=== PATIENT | male | born 1940 | race Caucasian/White ===

== ENCOUNTER → 2017-11-30 | Day surgery (SDC) | payer OTHER ==
[~2017-11-30] MED LIST: ALTACE; ASPIRIN; BACTRIM DS TAB1 EACH PO; BENADRYL25 MG PO; CEFUROXIME250 MG PO; CIPRO500 MG PO; COLACE100 MG PO; COMBIVENT IN; CONSTULOSE10 GM/152 PO; CYMBALTA; DEPAKOTE 250MG250 M1 PO; DICLOFENAC; DICLOFENAC SOD50 M1 PO; DICLOFENAC SODI75 MG PO; DIGOXIN; FINASTERIDE1 MG PO; FLAGYL500 MG PO; FLOMAX0.4 MG PO; GLUCOPHAGE; IBUPROFEN 400400 M2 PO; KEFLEX500 MG PO; LACTULOSE20 GM/30 M PO; LIPITOR10 MG PO; LOVASTATIN 20 M20 MG PO; MACROBID 100 M100 M1 PO; MAGOX 400400 MG PO; METFORMIN HCL500 MG PO; MIRALAX17 GM PO; NITROFURANTOIN100 MG PO; NYSTATIN 1100000 U/M TOP; NYSTATIN CREAM TOP; ONDANSETRON HCL4 M2 PO; PEPCID20 MG PO; PLAVIX 75 MG TA75 M1 PO; PRAVACHOL; PROSCAR 5MG TABL5 MG PO; PROTONIX40 M1 PO; PROTONIX40 M4 PO; PROVENTIL IH; PROZAC; PROZAC10 MG PO; RISPERDAL0.25 MG PO; SYNTHROID50 MCG PO; TRAZODONE HCL100 MG PO; TYLENOL325 MG PO; ZOLOFT50 MG PO
[2017-11-30 10:04] LABS: HEMATOCRIT 40.6 % (42.0-52.0); HEMOGLOBIN 13.2 gm/dL (14.0-18.0); MCHC 32.5 g/dL (28.0-37.0); MCV 95.5 fL (80.0-100.0); MPV 8.6 fl. (7.2-11.1); RBC 4.25 mil/uL (4.50-6.00); RDW-CV 13.5 % (10.5-14.5); WBC 5.1 thou/uL (4.0-11.0)
[2017-11-30 10:10] LABS: CALCIUM 9.2 mg/dL (8.5-10.1); CREATININE 0.9 mg/dL (0.6-1.3); POTASSIUM 4.4 mmol/L (3.5-5.1)
--- NOTE | 2017-11-30 12:55 | EKG ---
[place] [address] ELECTROCARDIOGRAM REPORT Name: IVAN CHACON Room: [facility]#: [id number] Admission: 11/30/17 Attend Phys: Angela Fischer MD Discharge: Date of : 36 Report #: [id number] THIS REPORT FOR: //name// [facility] Test Date: 2017-11-30 Test Time: 09:55:31 Pat Name: IVAN CHACON Department: Room: Gender: M Getterer: : 1940 Requested By: Angela Fischer Order Number: [id number] Reading MD: Joe Leroy Measurements Intervals [place] Rate: 48 P: 36 MO: 202 QRS: -53 QRSD: 168 T: 25 QT: 473 QTc: 423 Interpretive Statements Bradycardia with sinus arrhythmia RBBB and LAFB Compared to ECG 02/03/2017 08:22:31 no change Electronically Signed On 11-30-2017 12:55:45 MUSIC PROMOTER by Joe Leroy [email or web address] <ELECTRONICALLY SIGNED> By: Joe Leroy MD, [facility] 11/30/17 1255 D: 01954 4 Joe Leroy MD, FACC /EPI
--- NOTE | 2017-11-30 16:50 | EKG ---
[place] [address] ELECTROCARDIOGRAM REPORT Name: IVAN CHACON Room: [facility]#: [id number] Admission: 11/30/17 Attend Phys: Angela Fischer MD Discharge: Date of : 38 Report #: [id number] THIS REPORT FOR: //name// [facility] Test Date: 2017-11-30 Test Time: 13:01:40 Pat Name: IVAN CHACON Department: Room: Gender: M Bobbin Presser: : 1940 Requested By: Butch Mcintyre Order Number: [id number] Reading MD: Joe Leroy Measurements Intervals [place] Rate: 44 P: 74 DE: 183 QRS: -48 QRSD: 175 T: 33 QT: 477 QTc: 408 Interpretive Statements Sinus bradycardia Supraventricular bigeminy RBBB and LAFB Compared to ECG 11/30/2017 09:55:31 no change Electronically Signed On 11-30-2017 16:50:11 PAINT FACTORY WORKER by Joe Leroy [email or web address] <ELECTRONICALLY SIGNED> By: Joe Leroy MD, [facility] 11/30/17 1650 1301 1301 Joe Leroy MD, FACC /EPI
--- NOTE | 2017-12-05 16:35 | CON ---
[address] [address] CONSULTATION Name: IVAN CHACON SR Room: [facility]#: [id number] Admission: 11/30/17 Attend Phys: Angela Fischer MD Discharge: Date of : 38 Report #: [id number] THIS REPORT FOR: //name// CC: Angela Bowling MD [facility] Patient's Chart DATE OF SERVICE: 11/30/2017 HISTORY OF PRESENT ILLNESS: The patient is a 77-year-old single white male who I was asked to see in the recovery room today after he was noted to be bradycardic. The patient has no history of heart disease. He was noted in the past to have an abnormal ECG and actually saw my partner, Dr. Nadir Mcclendon in the cardiology clinic in June 2017. The patient had an echocardiogram performed that showed normal left ventricular function, aortic sclerosis. He actually underwent a nuclear stress test that showed a fixed inferior defect, but no reversible ischemia. No further cardiac evaluation was recommended. The patient is not very active because of a previous stroke and arthritis. He has had problems swallowing. He was brought to the outpatient department here at [facility] today and underwent EGD and esophageal dilatation. In recovery room, he was noted to have a slow heart rate. I was asked to see him for further evaluation and treatment. The patient denies any recent lightheadedness, shortness of breath, syncope. He does note some fatigue. He denies history of myocardial infarction or chest pain. PAST MEDICAL HISTORY: Otherwise significant for cholecystectomy. He has a history of hyperlipidemia, sleep apnea. MEDICATIONS: Consist of Plavix, Pepcid, Diane, Proscar, lovastatin, Naprosyn, Risperdal, Flomax, Desyrel. ALLERGIES: He has previous intolerance to ASPIRIN AND RAMIPRIL. FAMILY HISTORY: Negative for heart disease. SOCIAL HISTORY: He is , lives with a son in [place]. No smoking. Has history of alcohol abuse and went to , no longer abuses alcohol. REVIEW OF SYSTEMS: He apparently had a previous stroke in 2011 affecting his left side. He is now on Plavix. He has no history of asthma. He does have sleep apnea and uses CPAP. He has had no history of liver disease, kidney disease, psychiatric illness, chronic skin condition. PHYSICAL EXAMINATION: GENERAL: Revealed a large, elderly male lying on a stretcher, [place] [address] CONSULTATION Name: IVAN CHACON SR Room: [facility]#: [id number] Admission: 11/30/17 Attend Phys: Angela Fischer MD Discharge: Date of : 38 Report #: [id number] distress. VITAL SIGNS: He had a blood pressure 140/70, pulse is 50. HEENT: He was anicteric. Conjunctivae pink. Mucous membranes moist. NECK: Veins were not distended. No carotid bruits. CHEST: Clear to auscultation. CARDIOVASCULAR: Regular bradycardia, no significant murmur. Occasional prematurity. ABDOMEN: Obese, soft, nontender. EXTREMITIES: Had no edema. Dorsalis pedis pulse 1+ bilaterally. SKIN: Cool and dry. NEUROLOGIC: Nonfocal. LABORATORY DATA: His ECG on admission this morning showed sinus bradycardia, first degree AV block, occasional PAC, left anterior fascicular block and a right bundle branch block. In recovery room, he had a similar ECG and on the rhythm strip was noted to have sinus bradycardia with occasional PACs. IMPRESSION AND RECOMMENDATIONS: 1. Sinus bradycardia. If symptomatic, I would recommend a pacemaker. This certainly would avoid beta blockers. The patient is not symptomatic because he is very inactive because of his previous stroke and arthritis. 2. Premature atrial contractions. Asymptomatic No evidence of structural heart disease. 3. Previous stroke. The patient is on Plavix. 4. Recent esophageal dilatation. 5. Hyperlipidemia. The patient is on a statin drug. 6. Degenerative joint disease. 7. Sleep apnea. The patient uses CPAP. The patient is scheduled to return to see my partner, Dr. Mcclendon in the cardiology clinic next month. <ELECTRONICALLY SIGNED> By: Joe Leroy MD, FACC 12/05/17 1635 1456 1846Joe Leroy MD, FACC /nt
== END | disposition home or self-care (01) ==
LOC: M.SUR 09:23
PROVIDERS: Internal Medicine Gastroenterology
DX: K44.9 Diaphragmatic hernia without obstruction or gangrene (principal); Z88.6 Allergy status to analgesic agent; Z88.2 Allergy status to sulfonamides; Z91.041 Radiographic dye allergy status; Z79.899 Other long term (current) drug therapy

== ENCOUNTER 2017-12-21 22:02 | Inpatient (IN) | payer OTHER ==
[~2017-12-21] VITALS: Ht 185.4 cm; Wt 125.3 kg
[~2017-12-21 22:02] MED LIST changes: -DICLOFENAC SOD50 M1 PO; -NITROFURANTOIN100 MG PO; -PROTONIX40 M1 PO
[2017-12-21 22:05] VITALS: BP 104/54
[2017-12-21 22:40] LABS: ABSOLUTE EOSINOPHILS 0.4 thou/uL (0.0-0.7); ABSOLUTE LYMPHOCYTES 0.8 thou/uL (0.8-5.3); ABSOLUTE MONOCYTES 0.6 thou/uL (0.0-1.2); ABSOLUTE NEUTROPHILS 3.9 thou/uL (1.6-8.1); BASOPHILS 0.3 %; EOSINOPHILS 6.3 %; HEMATOCRIT 44.5 % (42.0-52.0); HEMOGLOBIN 14.7 gm/dL (14.0-18.0); LYMPHOCYTES 13.4 %; MCH 31.2 pg (26.0-34.0); MCV 94.5 fL (80.0-100.0); MONOCYTES 11.1 %; MPV 8.5 fl. (7.2-11.1); NUCLEATED RBCS 0 /100WBC; PLATELET COUNT* 201 thou/uL (150-400); POLYS 68.9 %; RBC 4.71 mil/uL (4.50-6.00); RDW-CV 13.7 % (10.5-14.5); WBC 5.6 thou/uL (4.0-11.0)
[2017-12-21 22:45] LABS: ANION GAP 11 mmol/L (7-16); BUN 57 mg/dL (7-18); CALCIUM 8.2 mg/dL (8.5-10.1); CHLORIDE 106 mmol/L (98-107); CO2 24 mmol/L (21-32); CREATININE 1.2 mg/dL (0.6-1.3); GLUCOSE 154 mg/dL (70-99); POTASSIUM 3.8 mmol/L (3.5-5.1); SODIUM 141 mmol/L (136-145)
[2017-12-21 22:53] LABS: ALKALINE PHOSPHATASE 116 U/L (46-116); LIPASE 285 U/L (73-393); SGOT 23 U/L (15-37); SGPT 26 U/L (30-65); TOTAL BILIRUBIN 0.4 mg/dL (<0.1-1.0); TOTAL PROTEIN 6.3 g/dL (6.4-8.2); TROPONIN-I LEVEL <0.06 ng/mL (<0.06)
[2017-12-22 00:24] VITALS: BP 107/60
[2017-12-22 00:25] VITALS: BP 131/75
[2017-12-22 03:57] VITALS: BP 105/74
[2017-12-22] MEDS ORDERED: PROTONIX40 M1 PO (05:42)
[2017-12-22 08:00] VITALS: BP 110/67
--- NOTE | 2017-12-22 12:12 | EKG ---
[place] [address] ELECTROCARDIOGRAM REPORT Name: IVAN CHACON SR Room: [address] ADM IN M.R.#: [id number] Admission: 12/21/17 Attend Phys: Yosvany Card Discharge: Date of : 38 Report #: [id number] THIS REPORT FOR: //name// [facility] ED Test Date: 2017-12-21 Test Time: 22:21:23 Pat Name: IVAN CHACON Department: Room: [facility] Gender: M School Janitor: REYES Dasilva : 1940 Requested By: Juan Delvalle Order Number: [id number] MD: Nadir Mcclendon Measurements Intervals [place] Rate: 88 P: 46 NV: 180 QRS: -85 QRSD: 159 T: 59 QT: 398 QTc: 482 Interpretive Statements Sinus rhythm Atrial premature complexes in couplets RBBB and LAFB Compared to ECG 11/30/2017 13:01:40 Sinus bradycardia no longer present Electronically Signed On 12-22-2017 12:12:42 TOY ASSEMBLER by Nadir Mcclendon [email or web address] <ELECTRONICALLY SIGNED> By: Nadir Mcclendon MD, FAC 12/22/17 1212 20 20 Nadir Mcclendon MD, [facility] /EPI
[2017-12-22 16:00] VITALS: BP 124/68
[2017-12-22 17:18] LABS: URINE BILIRUBIN NEGATIVE (Negative); URINE BLOOD TRACE (Negative); URINE CLARITY HAZY; URINE COLOR YELLOW; URINE GLUCOSE-RANDOM NEGATIVE (Negative); URINE KETONES TRACE (Negative); URINE LEUKOCYTES-REFLEX 1+ (Negative); URINE NITRITE-REFLEX POSITIVE (Negative); URINE PROTEIN NEGATIVE (Negative); URINE SPECIFIC GRAVITY 1.025 (1.005-1.030); URINE UROBILINOGEN 0.2 E.U./dl (0.2-1.0)
[2017-12-22 17:23] LABS: BACTERIA-REFLEX >30 Many /HPF (None Seen); CASTS None Seen /LPF (None Seen); SQUAMOUS >10 Many /LPF (0-3); URINE RBC None Seen /HPF (0-2); URINE WBC-REFLEX >25 Many /HPF (0-5)
[2017-12-22 17:24] LABS: CRYSTALS None Seen /LPF (None Seen)
[2017-12-22 20:10] VITALS: BP 144/66
[2017-12-23 00:30] VITALS: BP 111/49
[2017-12-23 04:04] VITALS: BP 102/55
[2017-12-23 05:12] LABS: MCH 31.4 pg (26.0-34.0)
[2017-12-23 05:18] LABS: HEMATOCRIT 35.6 % (42.0-52.0); MCV 92.6 fL (80.0-100.0); NUCLEATED RBCS 0 /100WBC; PLATELET COUNT* 157 thou/uL (150-400); RBC 3.85 mil/uL (4.50-6.00); WBC 5.1 thou/uL (4.0-11.0)
[2017-12-23 06:00] LABS: HEMOGLOBIN 12.1 gm/dL (14.0-18.0)
[2017-12-23 06:03] LABS: CALCIUM 7.9 mg/dL (8.5-10.1); POTASSIUM 3.7 mmol/L (3.5-5.1)
[2017-12-23 06:49] LABS: ABSOLUTE BASOPHILS 0.1 thou/uL (0.0-0.2); ABSOLUTE EOSINOPHILS 0.4 thou/uL (0.0-0.7); ABSOLUTE LYMPHOCYTES 0.9 thou/uL (0.8-5.3); ABSOLUTE MONOCYTES 0.4 thou/uL (0.0-1.2); ABSOLUTE NEUTROPHILS 3.4 thou/uL (1.6-8.1)
[2017-12-23 06:50] LABS: PLATELET ESTIMATE ADEQUATE
[2017-12-23 08:00] VITALS: BP 126/62
[2017-12-23 11:07] LABS: APTT 29.4 Seconds (25.0-31.3); INR 1.1; PROTIME 10.8 Seconds (9.20-11.50)
[2017-12-23 12:17] VITALS: BP 114/48
[2017-12-23 15:53] VITALS: BP 124/55
[2017-12-23 17:06] LABS: eGFR IF AFRICAN AMERICAN 96 (>59)
[2017-12-23 20:45] VITALS: BP 119/61
[2017-12-23 21:06] LABS: PARATHYROID HORMONE 50 pg/mL (15-65)
[2017-12-24 03:39] VITALS: BP 103/52
[2017-12-24 05:47] LABS: HEMATOCRIT 32.4 % (42.0-52.0); HEMOGLOBIN 11.1 gm/dL (14.0-18.0); MCH 31.6 pg (26.0-34.0); MCHC 34.2 g/dL (28.0-37.0); MCV 92.6 fL (80.0-100.0); MPV 9.1 fl. (7.2-11.1); RBC 3.5 mil/uL (4.50-6.00); RDW-CV 13.4 % (10.5-14.5); WBC 5.7 thou/uL (4.0-11.0)
[2017-12-24 06:01] LABS: CALCIUM 7.9 mg/dL (8.5-10.1); CREATININE 0.8 mg/dL (0.6-1.3); POTASSIUM 3.4 mmol/L (3.5-5.1)
[2017-12-24 08:00] VITALS: BP 125/50; BP 171/63
[2017-12-24 12:00] VITALS: BP 146/56
[2017-12-24 16:00] VITALS: BP 115/52
[2017-12-24 16:15] LABS: ABSOLUTE EOSINOPHILS 0.6 thou/uL (0.0-0.7); ABSOLUTE MONOCYTES 0.5 thou/uL (0.0-1.2); ABSOLUTE NEUTROPHILS 4.8 thou/uL (1.6-8.1); BASOPHILS 0.2 %; EOSINOPHILS 8.7 %; HEMATOCRIT 34.6 % (42.0-52.0); HEMOGLOBIN 11.6 gm/dL (14.0-18.0); LYMPHOCYTES 14.1 %; MCH 31.7 pg (26.0-34.0); MCHC 33.6 g/dL (28.0-37.0); MCV 94.2 fL (80.0-100.0); MONOCYTES 7.1 %; MPV 8.8 fl. (7.2-11.1); NUCLEATED RBCS 0 /100WBC; PLATELET COUNT* 148 thou/uL (150-400); POLYS 69.9 %; RBC 3.68 mil/uL (4.50-6.00); WBC 6.9 thou/uL (4.0-11.0)
[2017-12-24 16:45] LABS: ALBUMIN 2.4 g/dL (3.4-5.0); CALCIUM 7.9 mg/dL (8.5-10.1); CREATININE 0.9 mg/dL (0.6-1.3); POTASSIUM 3.7 mmol/L (3.5-5.1); TOTAL BILIRUBIN 0.1 mg/dL (<0.1-1.0); TOTAL PROTEIN 5.1 g/dL (6.4-8.2)
[2017-12-24 19:45] VITALS: BP 126/55
[2017-12-25] VITALS: BP 112/54
[2017-12-25 04:00] VITALS: BP 115/67
[2017-12-25 09:15] VITALS: BP 118/49
[2017-12-25 15:21] VITALS: BP 106/45
[2017-12-26] VITALS: BP 117/55
[2017-12-26 04:00] VITALS: BP 110/26
[2017-12-26 05:07] LABS: HEMATOCRIT 32.6 % (42.0-52.0); HEMOGLOBIN 11.4 gm/dL (14.0-18.0); MCH 32.6 pg (26.0-34.0); MCV 93.1 fL (80.0-100.0); MPV 9.1 fl. (7.2-11.1); NUCLEATED RBCS 0 /100WBC; PLATELET COUNT* 137 thou/uL (150-400); RDW-CV 13.7 % (10.5-14.5); WBC 6.3 thou/uL (4.0-11.0)
[2017-12-26 05:10] LABS: ALBUMIN 2.4 g/dL (3.4-5.0); CALCIUM 8.1 mg/dL (8.5-10.1); CREATININE 0.8 mg/dL (0.6-1.3); POTASSIUM 3.8 mmol/L (3.5-5.1); TOTAL BILIRUBIN 0.2 mg/dL (<0.1-1.0); TOTAL PROTEIN 4.8 g/dL (6.4-8.2)
[2017-12-26 06:57] LABS: ABSOLUTE EOSINOPHILS 0.9 thou/uL (0.0-0.7); ABSOLUTE LYMPHOCYTES 0.7 thou/uL (0.8-5.3); ABSOLUTE MONOCYTES 0.4 thou/uL (0.0-1.2); ABSOLUTE NEUTROPHILS 4.3 thou/uL (1.6-8.1); METAMYELOCYTES 1 %; PLATELET ESTIMATE ADEQUATE
[2017-12-26 09:15] VITALS: BP 105/49
[2017-12-26 11:35] VITALS: BP 105/49
[2017-12-26 11:53] VITALS: BP 131/62
--- NOTE | 2018-01-24 14:50 | CON ---
[address] [address] CONSULTATION Name: IVAN CHACON SR Room: [address] IN .R.#: [id number] Admission: 12/21/17 Attend Phys: Yosvany Card Discharge: 12/26/17 Date of : 38 Report #: [id number] THIS REPORT FOR: //name// CC: Dr. Abdon Rolle DICTATED BY: America Kim [facility] DATE OF SERVICE: 12/24/2017 PRIMARY CARE PHYSICIAN: Dr. Abdon Bowling. Please note at the time of this dictation, the patient was seen and physically examined by myself. REASON FOR CONSULTATION: Diarrhea, epigastric pain. HISTORY OF PRESENT ILLNESS: This 77-year-old male presented to the Emergency Room with chief complaint of having diarrhea for the last several days, which he states was progressively getting worse and he does not remember how many times he has gone. The patient states that when he would wipe, he would notice some bright red blood as well. He was also having some nausea and vomiting and unable to keep anything down at that time. He is complaining of some epigastric pain as well. The patient underwent a colonoscopy he said over at [facility] a year or two ago. We will need to obtain those records. He has had an EGD done back in 2007 that showed an antral nodule that was biopsied and a small hiatal hernia at that time. ALLERGIES: CONTRAST DYE, ASPIRIN. The patient states that prior to his bowels being loose, which were too numerous to count, he was noticing some bright red blood that he would go a couple of days in between, has had longstanding history of having issues with constipation. It was noted some time back that he had an atonic and redundant colon. The patient was also complaining of runny nose, but denied any fever or chills or any abdominal pain earlier on. On his nausea and vomiting, he denies any bright red blood or any melanotic stool. He states he just has not been able to keep anything down. ALLERGIES: ASPIRIN, BACTRIM, IODINE and AMOXICILLIN. MEDICATIONS: From home include Plavix, Mevacor, Pepcid, Synthroid, Depakote, trazodone, Zoloft, Risperdal, Flomax and Proscar. PAST MEDICAL HISTORY: Includes history of a DVT, hypertension, asthma, [place] [address] CONSULTATION Name: IVAN CHACON Room: [address]#: [id number] Admission: 12/21/17 Attend Phys: Yosvany Card Discharge: 12/26/17 Date of : 38 Report #: [id number] depression, diabetes, history of CVAs and he has sleep apnea. PAST SURGICAL HISTORY: Adenoidectomy, tonsillectomy, cholecystectomy. FAMILY HISTORY: Noncontributory. SOCIAL HISTORY: Drinks on special occasions. Denies any tobacco use now, but did in the past and denies any other illegal drug use at this time. REVIEW OF SYSTEMS: Twelve-point review of systems essentially negative except what is mentioned in the HPI. PHYSICAL EXAMINATION: VITAL SIGNS: Temperature 37, pulse 57, respirations 16, blood pressure 125/50. HEART: Regular rate and rhythm. CHEST: Lungs are diminished but clear. The patient had a CPAP on because he was sleeping. ABDOMEN: Soft, positive bowel sounds in all 4 quadrants with some generalized tenderness noted as well as some epigastric tenderness noted. LABORATORY DATA: Hemoglobin is 11.1, hematocrit 32.4, white count is 5.7, platelets are 140. Sodium 143, potassium 3.4, chloride 109, CO2 of 29, BUN is 27, creatinine 0.8, GFR is 93 and glucose is [address] of the abdomen and pelvis showed upper midline hernia with bowel loop extending into this region, distended stomach, small left kidney mass, likely a cyst and diffuse bladder wall thickening. Chest x-ray was normal. IMPRESSION: 1. Diarrhea. 2. Epigastric pain. 3. Nausea and vomiting, which is improved. 4. Bright red blood per rectum. 5. History of atonic and redundant colon which was noted in the past. 6. Constipation. 7. Anticoagulant therapy, history of a deep venous thrombosis and currently on Plavix. PLAN: 1. We will get his records from [place] to review for his last colonoscopy and any other endoscopy studies that have been done. 2. C. diff pending. 3. We will continue his Cipro and Flagyl. 4. We will await records from [place] to make further recommendations that the patient may likely need an EGD. [address] [place] [address] CONSULTATION Name: IVAN CHACON SR Room: [address] IN ..#: [id number] Admission: 12/21/17 Attend Phys: Yosvany Card Discharge: 12/26/17 Date of : 38 Report #: [id number] Thank you for allowing us to participate in this patient's care. Please do not hesitate to call with any questions in regard to this consult. <ELECTRONICALLY SIGNED> By: Angela Fischer MD 01/24/18 1450 1222 1256Angela Fischer MD /nt
--- NOTE | 2018-01-24 14:50 | CON ---
[address] [address] CONSULTATION Name: OSWALDOIVANTawana Narvaez SR Room: [address] IN M.R.#: [id number] Admission: 12/21/17 Attend Phys: Yosvany Card Discharge: 12/26/17 Date of : 38 Report #: [id number] THIS REPORT FOR: //name// CC: Abdon Rolle DATE OF SERVICE: 12/24/2017 ADDENDUM The patient with symptoms of nausea, vomiting, epigastric pain and diarrhea who reports that his nausea has completely resolved. Since hospitalization, stool assay was obtained for C. diff and is pending result. The patient is mildly anemic with hemoglobin of 11.6. His albumin is also low at 2.4. LFTs are all within normal limits. We will go ahead and await C. diff results. Also, we will gather the patient's medical records from his previous admission in [facility]. We will make further recommendation once these records are available and reviewed. <ELECTRONICALLY SIGNED> By: Angela Fischer MD 01/24/18 1450 1706 2125Angela Fischer MD /nt
== END 2017-12-26 13:31 | disposition home health service (06) | DRG 372 ==
LOC: M.ERS 22:02 → M.3W 23:47 → M.TBA-ER 23:47 → M.3W 12-22 00:31
PROVIDERS: Emergency Medicine Emergency Medical Services; ADMIT Internal Medicine
DX: A04.9 Bacterial intestinal infection, unspecified (principal); N39.0 Urinary tract infection, site not specified; E44.1 Mild protein-calorie malnutrition; J96.10 Chronic respiratory failure, unspecified whether with hypoxia or hypercapnia; Z68.36 Body mass index [BMI] 36.0-36.9, adult; I10 Essential (primary) hypertension; K43.2 Incisional hernia without obstruction or gangrene; K59.00 Constipation, unspecified; E78.5 Hyperlipidemia, unspecified; F32.9 Major depressive disorder, single episode, unspecified; E03.9 Hypothyroidism, unspecified; K21.9 Gastro-esophageal reflux disease without esophagitis; E11.9 Type 2 diabetes mellitus without complications; J45.909 Unspecified asthma, uncomplicated; Z66 Do not resuscitate; Z90.49 Acquired absence of other specified parts of digestive tract; Z88.6 Allergy status to analgesic agent; Z88.0 Allergy status to penicillin; Z88.2 Allergy status to sulfonamides; Z88.8 Allergy status to other drugs, medicaments and biological substances; Z86.73 Personal history of transient ischemic attack (TIA), and cerebral infarction without residual deficits; Z86.718 Personal history of other venous thrombosis and embolism; Z79.01 Long term (current) use of anticoagulants; Z82.49 Family history of ischemic heart disease and other diseases of the circulatory system

== ENCOUNTER → 2018-03-11 | Outpatient (CLI) | payer OTHER ==
[~2018-03-11] MED LIST changes: +DICLOFENAC SOD50 M1 PO; +NITROFURANTOIN100 MG PO; +PROTONIX40 M1 PO
== END ==
LOC: M.ULTRA 09:00
DX: D30.00 Benign neoplasm of unspecified kidney (principal); N28.1 Cyst of kidney, acquired

== ENCOUNTER 2018-05-26 16:11 | Inpatient (IN) | payer OTHER ==
[~2018-05-26] VITALS: Ht 185.4 cm; Wt 122.5 kg
[~2018-05-26 16:11] MED LIST changes: -DICLOFENAC SOD50 M1 PO; -NITROFURANTOIN100 MG PO
[2018-05-26] MEDS ORDERED: NITROFURANTOIN100 MG PO (16:23)
[2018-05-26] MEDS ORDERED: DICLOFENAC SOD50 M1 PO (16:24)
[2018-05-26 16:29] VITALS: BP 120/71
[2018-05-26 17:01] LABS: ABSOLUTE BASOPHILS 0.1 thou/uL (0.0-0.2); ABSOLUTE EOSINOPHILS 0.2 thou/uL (0.0-0.7); ABSOLUTE MONOCYTES 0.3 thou/uL (0.0-1.2); ABSOLUTE NEUTROPHILS 2.6 thou/uL (1.6-8.1); BASOPHILS 1.3 %; EOSINOPHILS 5.6 %; HEMATOCRIT 39.5 % (42.0-52.0); HEMOGLOBIN 13.2 gm/dL (14.0-18.0); MCH 31.4 pg (26.0-34.0); MCHC 33.4 g/dL (28.0-37.0); MCV 94.1 fL (80.0-100.0); MONOCYTES 7.2 %; MPV 8.2 fl. (7.2-11.1); NUCLEATED RBCS 0 /100WBC; PLATELET COUNT* 186 thou/uL (150-400); POLYS 62.9 %; RDW-CV 13.4 % (10.5-14.5); WBC 4.1 thou/uL (4.0-11.0)
[2018-05-26 17:02] LABS: ANION GAP 8 mmol/L (7-16); BUN 33 mg/dL (7-18); CALCIUM 9.1 mg/dL (8.5-10.1); CHLORIDE 101 mmol/L (98-107); CO2 28 mmol/L (21-32); CREATININE 1.1 mg/dL (0.6-1.3); GLUCOSE 124 mg/dL (70-99); SODIUM 137 mmol/L (136-145)
[2018-05-26 17:13] LABS: ALBUMIN 3.6 g/dL (3.4-5.0); ALKALINE PHOSPHATASE 85 U/L (46-116); NT-PRO BRAIN NAT PEPTIDE 421 pg/mL (<300); SGOT 11 U/L (15-37); SGPT 15 U/L (30-65); TOTAL BILIRUBIN 0.3 mg/dL (<0.1-1.0); TOTAL PROTEIN 7.3 g/dL (6.4-8.2); TROPONIN-I LEVEL <0.06 ng/mL (<0.06)
[2018-05-26 17:59] LABS: URINE BILIRUBIN NEGATIVE (Negative); URINE BLOOD NEGATIVE (Negative); URINE CLARITY CLEAR; URINE COLOR YELLOW; URINE GLUCOSE-RANDOM NEGATIVE (Negative); URINE KETONES TRACE (Negative); URINE LEUKOCYTES-REFLEX 2+ (Negative); URINE NITRITE-REFLEX POSITIVE (Negative); URINE PROTEIN NEGATIVE (Negative); URINE SPECIFIC GRAVITY 1.015 (1.005-1.030); URINE UROBILINOGEN 0.2 E.U./dl (0.2-1.0)
[2018-05-26 18:09] LABS: CASTS None Seen /LPF (None Seen); MUCUS None Seen strn/LPF (None Seen); SQUAMOUS 4-10 Moderate /LPF (0-3); URINE RBC 0-2 Rare /HPF (0-2); WBC CLUMPS Few (None Seen)
[2018-05-26 18:10] LABS: BACTERIA-REFLEX >30 Many /HPF (None Seen); CRYSTALS None Seen /LPF (None Seen)
[2018-05-26 20:10] VITALS: BP 108/58
[2018-05-26 20:35] VITALS: BP 113/73
--- NOTE | 2018-05-26 20:35 | NUR ---
PT ADMITTED TO FLOOR PER CART ACCOMPANIED BY ER STAFF WITH BELONGINGS. ORIENTED TO ROOM AND CALL LITE. HISTORY OBTAINED AND ASSESSMENT PERFORMED, SEE ADMIT NOTES. PT AOX4, CALM. RAC IV ABX INFUSING. CALL LITE IN EASY REACH. BED ALARM ON FOR SAFETY. WILL CONTINUE TO MONITOR AND PROVIDE CARES NEEDED.
--- NOTE | 2018-05-27 05:31 | NUR ---
NEW ADMISSION THIS SHIFT. PT SLEPT FAIRLY WELL OVERNIGHT. USING URINAL SOME TO VOID AND ALSO INCONTINENT, NAOMI CARE GIVEN, BARRIER CREAM APPLIED. CO L KNEE PAIN WITH MOVEMENT, DENIES NEED FOR PAIN MED. TAKING HS PILLS WITH WATER WITHOUT DIFFICULTY, TOLERATED BOX LUNCH MEAL. FAMILY TO BRING IN DENTURES. HEARING AIDE IN CUP AT BEDSIDE. TROPONIN LABS WNL SO FAR. RAC ABX GIVEN ORDERED. ABLE TO USE CALL LITE AND MAKE NEEDS KNOWN. TURNS SELF INDEP IN BED FROM SIDE TO SIDE. BED ALARM ON FOR SAFETY.
[2018-05-27 08:00] VITALS: BP 120/74
--- NOTE | 2018-05-27 12:17 | NUR ---
SW met with pt to complete initial assessment, introduce self, and SW role. Pt known to this SW from previous admissions. Pt was alert, oriented, and difficult to understand at times due to slurred speech. Pt continues to live with his son and dtr in law. Pt has wc and history of [facility]. Pt did not have any questions or comments at this time. SW to follow to assist with safe dc planning.
--- NOTE | 2018-05-27 18:31 | NUR ---
SHIFT NOTE - PT INC OF BOWEL AND URINE THIS AFTERNOON. NAOMI-AREA VERY EXCORIATED. BARRIER CREAM APPLIED. PT TURN Q2H. PT ABLE TO FEED HIMSELF. IV SL R AC. SON HERE THIS AFTERNOON.
[2018-05-27 22:00] VITALS: BP 127/67
--- NOTE | 2018-05-28 05:43 | NUR ---
PATIENT HAS RESTED THROUGHOUT THE NIGHT. VSS ON RA. NO C/O PAIN DURING SHIFT. PATIENT REMAINS ON BEDREST AT THIS TIME. PATIENT HAS BEEN INCONTINENT OF BOWEL AND BLADDER. NAOMI CARE PERFORMED. PATIENT TURNED EVERY 2HRS AND PRN. IV IN RIGHT AC-SL. FALL PRECAUTIONS IN PLACE AND HOURLY ROUNDS MADE. WILL CONTINUE WITH PLAN OF CARE AND NURSING TO MONITOR.
[2018-05-28 07:45] VITALS: BP 118/73
--- NOTE | 2018-05-28 13:31 | EKG ---
[place] [address] ELECTROCARDIOGRAM REPORT Name: IVAN CHACON Room: [address] IN .R.#: [id number] Admission: 05/26/18 Attend Phys: Max Menon MD Discharge: Date of : 38 Report #: [id number] THIS REPORT FOR: //name// [facility] ED Test Date: 2018-05-26 Test Time: 16:24:57 Pat Name: IVAN CHACON Department: Room: Gender: Alarm Operator: Vidya ESQUIVEL : 1940 Requested By: Juan Delvalle Order Number: [id number] MD: Nadir Mcclendon Measurements Intervals [place] Rate: 75 P: 38 GA: 199 QRS: -61 QRSD: 168 T: 33 QT: 410 QTc: 458 Interpretive Statements Sinus rhythm Atrial premature complexes RBBB and LAFB Compared to ECG 12/21/2017 22:21:23 No significant changes Electronically Signed On 05-28-2018 13:31:08 CDT by Nadir Mcclendon [email or web address] <ELECTRONICALLY SIGNED> By: Nadir Mcclendon MD, FACC 05/28/18 1331 1624 1624 Nadir Mcclendon MD, [facility] /EPI
[2018-05-28 16:19] VITALS: BP 117/74
--- NOTE | 2018-05-28 17:59 | NUR ---
PATIENT IS ALERT AND ORIENTED TODAY PLEASANT, VITAL SIGNS STABLE ON ROOM AIR. NO COMPLAINTS OF ANY KIND TODAY, APPETITE IS GOOD. TOLERATED THERAPY WELL TODAY, HAS BEEN IN THE CHAIR MOST OF THE DAY. CALL LIGHT IS IN REACH, WILL CONTINUE TO MONITOR.
[2018-05-28 20:00] VITALS: BP 120/50
--- NOTE | 2018-05-29 06:53 | NUR ---
PATIENT HAS SLEPT WELL THROUGHOUT THE NIGHT WITHOUT ANY ISSUES. VSS ON RA. NO C/O PAIN. PATIENT HAS BEEN INCONTINENT OF BOWEL AND BLADDER DURING THE NIGHT. NAOMI CARE PERFORMED. IV IN RIGHT AC-SL. FALL PRECAUTIONS IN PLACE. HOURLY ROUNDS MADE. WILL CONTINUE WITH PLAN OF CARE.
[2018-05-29 09:20] VITALS: BP 107/62
--- NOTE | 2018-05-29 16:54 | NUR ---
ASSUMED CARE OF PATIENT AFTER MORNING REPORT. ALERT AND ORIENTED X4. ASSESSMENT COMPLETED AND CHARTED. VSS ON ROOM AIR. PATIENT HAS HAD NO COMPLAINTS OF PAIN, NAUSEA OR SOA THIS SHIFT. IV IS PATENT AND HAS BEEN FLUSHED ORDERED, SALINE LOCKED. PATIENT WEARS BRIEFS AND IS INCONTINENT OF BLADDER AND BOWEL, HAS A MEDIUM SIZED BOWEL MOVEMENT THIS AFTERNOON. PATIENT HAS BEEN UP IN THE CHAIR THIS AFTERNOON FOR MEALS. HOURLY ROUNDS MAINTAINED, CALL LIGHT IN REACH, NURSING WILL CONTINUE TO MONITOR.
[2018-05-29 17:37] VITALS: BP 111/67
[2018-05-30 00:03] VITALS: BP 134/65
[2018-05-30 00:05] VITALS: BP 132/72
--- NOTE | 2018-05-30 06:47 | NUR ---
PT SLEPT WELL OVERNIGHT. INCONTINENT OF BOWEL AND BLADDER, HAD 2 MODERATE FORM BMS. RAC SL. NO LABS THIS MORNING. HAS DENIED PAIN OR PROBLEMS. TAKES PILLS WHOLE WITH WATER WITHOUT DIFFICULTY. ABLE TO USE CALL LITE AND MAKE NEEDS KNOWN. PT SON HERE EARLY THIS MORNING AND STATES THAT IF PT GETS DISCHARGE HOME TODAY HE WILL NEED A CAB VOUCHER BECAUSE THE ONLY TRANSPORTATION SON HAS IS A MOTORCYCLE.
[2018-05-30 09:36] VITALS: BP 126/64
--- NOTE | 2018-05-30 12:28 | NUR ---
TERRITORY OUTSIDE SALES MANAGER: RECEIVED CONSULT FOR POSSIBLE INPATIENT REHAB ADMISSION. CONSULT HAS BEEN ACKNOWLEDGED BY TERRITORY OUTSIDE SALES MANAGER AND DR. GOFF. PATIENT HAVING WEAKNESS WHICH IS LIMITING HIS ABILITY TO CARE FOR SELF. WILL CONTINUE TO FOLLOW. THANK YOU FOR THIS CONSULT.
--- NOTE | 2018-05-30 12:37 | NUR ---
RAIN called pt dtr in law and spoke with pt son as well about pt dc plans and pt family stated that pt was able to be more independent prior to this hospital stay and that they would prefer pt be able to have therapy if possible to gain more strength and independence prior to pt return home. RAIN met with pt to discuss safe dc planning. Pt also wants to be able to "get legs stronger" and would prefere [facility] in rehab. RAIN discussed possible SNF but pt insurance does not cover SNF, would be a $10,000 deductible. If pt dc home instead, pt would be home with family, [facility] services, and would need a cab voucher/transportation home. RAIN discussed inpt rehab consult with Dr Rolle and prevocational/rehabilitation counselor. SW to continue to follow.
--- NOTE | 2018-05-30 14:46 | NUR ---
DISCUSSED REHAB CONSULT WITH JANELLE/REHAB LIASON. SHE WILL SEND IN TO INSURANCE FOR AUTHORIZATION FOR REHAB UNIT.
[2018-05-30 16:25] VITALS: BP 137/78
--- NOTE | 2018-05-30 17:36 | NUR ---
ASSUMED CARE OF PATIENT AFTER MORNING REPORT. ALERT AND ORIENTED X4. ASSESSMENT COMPLETED AND CHARTED. VSS ON ROOM AIR. PATIENT HAS HAD NO COMPLAINTS OF PAIN, NAUSEA OR SOA THIS SHIFT. IV REMIANS PATENTS, SALINE LOCKED AND FLUSHED ORDERED. PATIENT REMAINS INCONTINENT OF BOWEL AND BLADDER, WEARS A BRIEF PER CHOICE FOR ACCIDENTS. PATIENT HAS HAD SEVERAL BOWEL MOVEMENT TODAY BUT VOICES COMPLAINT OF CONSTIPATION... DISCUSSION HAD WITH PATIENT ABOUT CALLING OUT FOR ASSISTANCE TO USE THE RESTROOM, REINFORCEMENT IS NEEDED. CONSULT ORDERD TODAY FOR DR VALENCIA TO ASSESS FOR REHAB UPSTAIRS. HOURLY ROUNDS MAINTAINED, CALL LIGHT IN REACH, NURSING WILL ONTINUE TO MONITOR.
[2018-05-31 00:05] VITALS: BP 132/72
--- NOTE | 2018-05-31 05:24 | NUR ---
PT SLEPT WELL OVERNIGHT. INCONTINENT URINE, NAOMI CARE GIVEN. PT TURNS INDEP IN BED FROM SIDE TO SIDE. RAC SL. TAKES PILLS WHOLE WITH WATER WITHOUT DIFFICULTY. ABLE TO USE CALL LITE AND MAKE NEEDS KNOWN. POSSIBLE DISCHARGE TO REHAB FACILITY VS HOME TODAY. DENIES PAIN OR PROBLEMS OVERNIGHT. BED ALARM ON FOR SAFETY.
[2018-05-31 08:00] VITALS: BP 137/94
--- NOTE | 2018-05-31 10:00 | NUR ---
PER JANELLE/REHAB LIASON, INSURANCE HAS DENIED INPT.REHAB.
--- NOTE | 2018-05-31 12:00 | NUR ---
SPOKE WITH PT.'S SON,FERNANDO ON PHONE ABOUT INSURANCE DENIAL OF INPT.REHAB. EXPLAINED HE DOES HAVE SNF BENEFITS AND THERE ARE SEVERAL SNFS HE COULD GO TO. PER RICARDO/ADA, PT.HAS NO DEDUCTIBLE. DAY 0-20 WOULD BE PAID AT 100% DAY 21-100 WOULD BE $160 A DAY. SON WOULD LIKE HIM TO GO TO [facility]. REFERRAL FAXED TO RICARDO. SHE CALLED BACK AND SAID THEY COULD MEDICALLY ACCEPT PT. SHE WILL WORK ON INSURANCE AUTH. PT.[id number] AND HE IS AGREEABLE ALSO TO GO TO [facility].
[2018-05-31 13:58] VITALS: BP 137/94
--- NOTE | 2018-05-31 15:15 | NUR ---
PT WILL DC TODAY. FAXED DC ORDERS TO [facility] PHONE [phone] SPOKE WITH IJEOMA AND PT IS APPROVED FOR CARE. PT WILL DC TODAY.
--- NOTE | 2018-05-31 15:25 | NUR ---
LEFT VMAIL FOR PT'S SON AND DIL TO ASSIST WITH COORDINATING CPAP DELIVERY TO [facility]
--- NOTE | 2018-05-31 16:40 | NUR ---
DISCHARGE NOTE - PT DISCHARGED TO [facility] [phone]. RT AC SL REMOVED. REPORT GIVEN TO NATY KEITA. BELONGINGS SENT WITH TRANSPORTER.
== END 2018-05-31 16:45 | DRG 690 ==
LOC: M.ERS 16:11 → M.TBA-ER 18:45 → M.ORTHSURG 18:45
PROVIDERS: Emergency Medicine Emergency Medical Services; ADMIT Internal Medicine
DX: N39.0 Urinary tract infection, site not specified (principal); I10 Essential (primary) hypertension; J45.909 Unspecified asthma, uncomplicated; E86.0 Dehydration; R63.0 Anorexia; F32.9 Major depressive disorder, single episode, unspecified; E11.9 Type 2 diabetes mellitus without complications; G47.33 Obstructive sleep apnea (adult) (pediatric); Z88.2 Allergy status to sulfonamides; Z88.6 Allergy status to analgesic agent; Z88.1 Allergy status to other antibiotic agents; Z90.49 Acquired absence of other specified parts of digestive tract; Z86.73 Personal history of transient ischemic attack (TIA), and cerebral infarction without residual deficits; Z86.718 Personal history of other venous thrombosis and embolism; Z87.891 Personal history of nicotine dependence; Z68.35 Body mass index [BMI] 35.0-35.9, adult; Z79.2 Long term (current) use of antibiotics; Z79.899 Other long term (current) drug therapy; Z82.49 Family history of ischemic heart disease and other diseases of the circulatory system

== ENCOUNTER 2018-07-05 18:18 | Emergency (ER) | payer OTHER ==
[~2018-07-05] VITALS: Ht 172.7 cm; Wt 120.8 kg
[~2018-07-05 18:18] MED LIST changes: +DICLOFENAC SOD50 M1 PO; +NITROFURANTOIN100 MG PO
[2018-07-05 18:34] LABS: ABSOLUTE EOSINOPHILS 0.2 thou/uL (0.0-0.7); ABSOLUTE MONOCYTES 0.4 thou/uL (0.0-1.2); ABSOLUTE NEUTROPHILS 2.7 thou/uL (1.6-8.1); BASOPHILS 1.1 %; EOSINOPHILS 4.1 %; HEMATOCRIT 38.2 % (42.0-52.0); HEMOGLOBIN 12.7 gm/dL (14.0-18.0); LYMPHOCYTES 23.4 %; MCH 31.4 pg (26.0-34.0); MCHC 33.3 g/dL (28.0-37.0); MCV 94.4 fL (80.0-100.0); MONOCYTES 8.3 %; MPV 8.1 fl. (7.2-11.1); NUCLEATED RBCS 0 /100WBC; PLATELET COUNT* 174 thou/uL (150-400); POLYS 63.1 %; RBC 4.04 mil/uL (4.50-6.00); RDW-CV 13.5 % (10.5-14.5); WBC 4.3 thou/uL (4.0-11.0)
[2018-07-05 18:49] LABS: CALCIUM 9.1 mg/dL (8.5-10.1); CREATININE 0.9 mg/dL (0.6-1.3)
[2018-07-05 18:51] LABS: SALICYLATE < 2.8 mg/dL (2.8-20.0)
[2018-07-05 18:52] LABS: ACETAMINOPHEN < 2 ug/mL (10-30); ALCOHOL < 10 mg/dL (<10)
[2018-07-05 18:53] LABS: ALBUMIN 3.6 g/dL (3.4-5.0); TOTAL BILIRUBIN 0.4 mg/dL (<0.1-1.0); TOTAL PROTEIN 6.8 g/dL (6.4-8.2)
[2018-07-05 22:51] LABS: URINE BILIRUBIN NEGATIVE (Negative); URINE BLOOD NEGATIVE (Negative); URINE CLARITY CLEAR; URINE COLOR YELLOW; URINE GLUCOSE-RANDOM NEGATIVE (Negative); URINE KETONES NEGATIVE (Negative); URINE PROTEIN NEGATIVE (Negative)
[2018-07-05 22:52] LABS: URINE LEUKOCYTES-REFLEX 2+ (Negative); URINE NITRITE-REFLEX POSITIVE (Negative)
[2018-07-05 22:58] LABS: AMP/METHAMP Negative (Negative); BARBITURATES Negative (Negative); BENZODIAZEPINES Negative (Negative); COCAINE Negative (Negative); METHADONE Negative (Negative); OPIATES Negative (Negative); PCP Negative (Negative); THC Negative (Negative)
[2018-07-06 00:38] LABS: CASTS None Seen /LPF (None Seen); SQUAMOUS 4-10 Moderate /LPF (0-3)
[2018-07-06 00:39] LABS: BACTERIA-REFLEX >30 Many /HPF (None Seen); CRYSTALS None Seen /LPF (None Seen); URINE RBC 0-2 Rare /HPF (0-2); URINE WBC-REFLEX >25 Many /HPF (0-5)
[2018-07-06 06:50] VITALS: BP 139/55
--- NOTE | 2018-07-06 12:07 | EKG ---
[place] [address] ELECTROCARDIOGRAM REPORT Name: IVAN CHACON SR Room: [facility]#: [id number] Admission: 07/05/18 Attend Phys: Discharge: 07/06/18 Date of : 36 Report #: [id number] THIS REPORT FOR: //name// [facility] ED Test Date: 2018-07-05 Test Time: 19:08:19 Pat Name: IVAN CHACON Department: Room: Gender: M Epic Radiant Analyst: PRATIMA : 1940 Requested By: Theodore Turpin Order Number: [id number] MD: Nadir Mcclendon Measurements Intervals [place] Rate: 44 P: 33 NM: 203 QRS: -71 QRSD: 166 T: 48 QT: 477 QTc: 408 Interpretive Statements Sinus bradycardia Atrial premature complex RBBB and LAFB Compared to ECG 05/26/2018 16:24:57 Sinus rhythm no longer present Electronically Signed On 07-06-2018 12:06:55 CDT by Nadir Mcclendon [email or web address] <ELECTRONICALLY SIGNED> By: Nadir Mcclendon MD, [facility] 07/06/18 1206 07 07 Nadir Mcclendon MD, [facility] /EPI
== END 2018-07-06 06:50 ==
LOC: M.ERS 18:18
PROVIDERS: Emergency Medicine
DX: R45.851 Suicidal ideations (principal); I10 Essential (primary) hypertension; J45.909 Unspecified asthma, uncomplicated; F32.9 Major depressive disorder, single episode, unspecified; E11.9 Type 2 diabetes mellitus without complications; G47.30 Sleep apnea, unspecified; Z90.49 Acquired absence of other specified parts of digestive tract; Z88.1 Allergy status to other antibiotic agents; Z91.041 Radiographic dye allergy status; Z88.2 Allergy status to sulfonamides; Z88.6 Allergy status to analgesic agent

== ENCOUNTER 2018-12-19 14:02 | Emergency (ER) | payer OTHER ==
[~2018-12-19] VITALS: Ht 180.3 cm; Wt 117.9 kg
[2018-12-19 14:37] LABS: URINE BILIRUBIN NEGATIVE (Negative); URINE BLOOD NEGATIVE (Negative); URINE CLARITY CLEAR; URINE COLOR YELLOW; URINE GLUCOSE-RANDOM NEGATIVE (Negative); URINE KETONES NEGATIVE (Negative); URINE PROTEIN NEGATIVE (Negative)
[2018-12-19 14:38] LABS: URINE LEUKOCYTES-REFLEX 3+ (Negative); URINE NITRITE-REFLEX POSITIVE (Negative)
[2018-12-19 14:50] LABS: SQUAMOUS NONE SEEN /LPF (0-3)
[2018-12-19 14:51] LABS: BACTERIA-REFLEX >30 Many /HPF (None Seen); CASTS None Seen /LPF (None Seen); CRYSTALS None Seen /LPF (None Seen); URINE RBC None Seen /HPF (0-2); URINE WBC-REFLEX 6-15 Few /HPF (0-5)
[2018-12-19 14:51] LABS: INFLUENZA A ANTIGEN None Detected (None Detect); INFLUENZA B ANTIGEN None Detected (None Detect)
[2018-12-19 14:53] LABS: HEMATOCRIT 39.3 % (42.0-52.0); HEMOGLOBIN 13.2 gm/dL (14.0-18.0); MCH 32.3 pg (26.0-34.0); MCHC 33.5 g/dL (28.0-37.0); MCV 96.6 fL (80.0-100.0); MPV 8.2 fl. (7.2-11.1); NUCLEATED RBCS 0 /100WBC; PLATELET COUNT* 159 thou/uL (150-400); RBC 4.07 mil/uL (4.50-6.00); RDW-CV 13.8 % (10.5-14.5); WBC 5.1 thou/uL (4.0-11.0)
[2018-12-19 15:07] LABS: CALCIUM 9.1 mg/dL (8.5-10.1); CREATININE 0.9 mg/dL (0.6-1.3); POTASSIUM 4.6 mmol/L (3.5-5.1)
[2018-12-19 15:12] LABS: ALBUMIN 3.6 g/dL (3.4-5.0); TOTAL BILIRUBIN 0.2 mg/dL (<0.1-1.0); TOTAL PROTEIN 7.3 g/dL (6.4-8.2)
[2018-12-19 15:47] LABS: ABSOLUTE EOSINOPHILS 0.7 thou/uL (0.0-0.7); ABSOLUTE LYMPHOCYTES 1.1 thou/uL (0.8-5.3); ABSOLUTE MONOCYTES 0.2 thou/uL (0.0-1.2); ABSOLUTE NEUTROPHILS 3.2 thou/uL (1.6-8.1); ATYPICAL LYMPHS 1 %; PLATELET ESTIMATE ADEQUATE
[2018-12-19] MEDS ORDERED: KEFLEX500 M1 PO (15:51)
[2018-12-19] MEDS ORDERED: PROAIR HFA8.5 GM PO (15:51)
[2018-12-19 15:56] VITALS: BP 110/71
--- NOTE | 2018-12-19 17:23 | EKG ---
[place] [address] ELECTROCARDIOGRAM REPORT Name: NAEL CHACONTawana Narvaez Room: [facility]#: [id number] Admission: 12/19/18 Attend Phys: Discharge: Date of : 36 Report #: [id number] THIS REPORT FOR: //name// [facility] ED Test Date: 2018-12-19 Test Time: 14:29:10 Pat Name: IVAN CHACON Department: Room: Gender: Cable Driller: Vidya ESQUIVEL : 1940 Requested By: Hazel Wood Order Number: [id number] MD: Joe Leroy Measurements Intervals [place] Rate: 55 P: 73 ND: 190 QRS: -64 QRSD: 163 T: 43 QT: 445 QTc: 426 Interpretive Statements Sinus rhythm Atrial premature complexes RBBB and LAFB Compared to ECG 07/05/2018 19:08:19 Sinus bradycardia no longer present Electronically Signed On 12-19-2018 17:23:47 UM RN by Joe Leroy [email or web address] <ELECTRONICALLY SIGNED> By: Joe Leroy MD, [facility] 12/19/18 1723 1429 1429 Joe Leroy MD, FAC /EPI
== END 2018-12-19 15:58 | disposition home or self-care (01) ==
LOC: M.ERS 14:02
PROVIDERS: Nurse Practitioner Family
DX: N39.0 Urinary tract infection, site not specified (principal); J06.9 Acute upper respiratory infection, unspecified; I10 Essential (primary) hypertension; J45.909 Unspecified asthma, uncomplicated; F32.9 Major depressive disorder, single episode, unspecified; E11.9 Type 2 diabetes mellitus without complications; G47.30 Sleep apnea, unspecified; Z88.1 Allergy status to other antibiotic agents; Z91.041 Radiographic dye allergy status; Z88.2 Allergy status to sulfonamides; Z88.6 Allergy status to analgesic agent; Z88.8 Allergy status to other drugs, medicaments and biological substances; Z86.718 Personal history of other venous thrombosis and embolism; Z90.89 Acquired absence of other organs; Z90.49 Acquired absence of other specified parts of digestive tract; Z86.73 Personal history of transient ischemic attack (TIA), and cerebral infarction without residual deficits

== ENCOUNTER 2019-05-08 22:52 | Inpatient (IN) | payer OTHER ==
[~2019-05-08] VITALS: Ht 182.9 cm; Wt 117.5 kg
[~2019-05-08 22:52] MED LIST changes: +KEFLEX500 M1 PO; +PROAIR HFA8.5 GM PO
[2019-05-08 23:06] VITALS: BP 123/60
[2019-05-08 23:25] LABS: ABSOLUTE EOSINOPHILS 0.1 thou/uL (0.0-0.7); ABSOLUTE LYMPHOCYTES 1.1 thou/uL (0.8-5.3); ABSOLUTE MONOCYTES 0.4 thou/uL (0.0-1.2); ABSOLUTE NEUTROPHILS 2.1 thou/uL (1.6-8.1); BASOPHILS 1.3 %; EOSINOPHILS 3.9 %; HEMATOCRIT 33.7 % (42.0-52.0); HEMOGLOBIN 11.3 gm/dL (14.0-18.0); LYMPHOCYTES 28.9 %; MCH 31.5 pg (26.0-34.0); MCHC 33.5 g/dL (28.0-37.0); MCV 93.9 fL (80.0-100.0); MONOCYTES 10.6 %; MPV 8.2 fl. (7.2-11.1); NUCLEATED RBCS 0 /100WBC; PLATELET COUNT* 136 thou/uL (150-400); POLYS 55.3 %; RBC 3.59 mil/uL (4.50-6.00); RDW-CV 13.5 % (10.5-14.5); WBC 3.8 thou/uL (4.0-11.0)
[2019-05-08 23:36] LABS: CALCIUM 8.9 mg/dL (8.5-10.1)
[2019-05-08 23:48] LABS: URINE BILIRUBIN NEGATIVE (Negative); URINE BLOOD NEGATIVE (Negative); URINE CLARITY CLEAR; URINE COLOR YELLOW; URINE GLUCOSE-RANDOM NEGATIVE (Negative); URINE KETONES NEGATIVE (Negative); URINE LEUKOCYTES-REFLEX 1+ (Negative); URINE NITRITE-REFLEX NEGATIVE (Negative); URINE PROTEIN NEGATIVE (Negative)
[2019-05-08 23:50] LABS: ALBUMIN 3.5 g/dL (3.4-5.0); TOTAL BILIRUBIN 0.4 mg/dL (<0.1-1.0); TOTAL PROTEIN 6.6 g/dL (6.4-8.2); TROPONIN-I LEVEL 0.07 ng/mL (<0.06)
[2019-05-08 23:59] LABS: SQUAMOUS 0-3 Few /LPF (0-3)
[2019-05-09] VITALS (7 sets, daily range): BP systolic 110–132; BP diastolic 36–73
[2019-05-09] LABS: CASTS None Seen /LPF (None Seen); CRYSTALS None Seen /LPF (None Seen); MUCUS 0-3 Light strn/LPF (None Seen); URINE RBC 3-10 Few /HPF (0-2); URINE WBC-REFLEX >25 Many /HPF (0-5); WBC CLUMPS Few (None Seen)
[2019-05-09] MEDS ORDERED: NITROFURANTOIN100 MG PO (00:06)
[2019-05-09] MEDS ORDERED: PEPCID20 MG PO (00:07)
[2019-05-09] MEDS ORDERED: FIBER350 GM PO (00:08)
--- NOTE | 2019-05-09 06:40 | NUR ---
RECEIVED REPORT FROM CIGAR PACKER AND PICKER VICENTA AT 0145. PT ARRIVED TO UNIT VIA CART AT 0200. PT AAOX4, ORIENTED TO ROOM AND CALL LIGHT. FINANCE BUSINESS MANAGER IN PLACE, TRACING SB BBB/PACS. HIGH FALL PRECAUTIONS IN PLACE, CALL LIGHT WITHIN REACH. PT VOICED NO CONCERNS THIS SHIFT.
[2019-05-09 10:39] LABS: CALCIUM 8.4 mg/dL (8.5-10.1); CREATININE 0.8 mg/dL (0.6-1.3); MAGNESIUM 2.1 mg/dL (1.8-2.4); POTASSIUM 4.2 mmol/L (3.5-5.1)
--- NOTE | 2019-05-09 13:00 | NUR ---
VSS, ASSUMED CARE OF PT THIS AM, ASSESSMENT PERFORMED AND CHARTED, FALL PRECAUTIONS IN PLACE AND CALL LIGHT IN REACH, PT IS A&O3-4 AND UP WITH ONE TO BSC, HE IS ON RA AND IS TRACING SR/SB ON THE MONITOR, PT GOAL IS TO SIT UP IN CHAIR, HOURLY ROUNDS COMPLETED AND PT WAS UP IN CHAIR FOR BED CHANGE.
--- NOTE | 2019-05-09 14:08 | EKG ---
[place] [address] ELECTROCARDIOGRAM REPORT Name: IVAN CHACON Room: [address] ADM IN .R.#: [id number] Admission: 05/09/19 Attend Phys: Macho Spann MD Discharge: Date of : 36 Report #: [id number] THIS REPORT FOR: //name// [facility] ED Test Date: 2019-05-08 Test Time: 23:47:11 Pat Name: IVAN CHACON Department: Room: [facility] Gender: Manager Produce: : 1940 Requested By: Wilbert Quinones Order Number: [id number] MD: Joe Leroy Measurements Intervals [place] Rate: 47 P: 35 AR: 195 QRS: -65 QRSD: 171 T: 43 QT: 453 QTc: 401 Interpretive Statements Sinus bradycardia Atrial premature complex RBBB and LAFB Baseline wander in lead(s) I,II,aVR,V1,V2,V4,V6 Compared to ECG 12/19/2018 14:29:10 no change Electronically Signed On 05-09-2019 14:08:09 CDT by Joe Leroy [email or web address] <ELECTRONICALLY SIGNED> By: Joe Leroy MD, [facility] 05/09/19 1408 [id number] Joe Leroy MD, [facility] /EPI
--- NOTE | 2019-05-09 15:41 | NUR ---
CM attempted to see x2, asleep both times. Left VM for family. Will continue to try and assess
[2019-05-10] VITALS: BP 126/61
[2019-05-10 04:00] VITALS: BP 111/61
[2019-05-10 05:04] LABS: HEMATOCRIT 32.3 % (42.0-52.0); HEMOGLOBIN 10.8 gm/dL (14.0-18.0); MCH 31.7 pg (26.0-34.0); MCHC 33.6 g/dL (28.0-37.0); MCV 94.5 fL (80.0-100.0); MPV 8.3 fl. (7.2-11.1); RBC 3.41 mil/uL (4.50-6.00); RDW-CV 13.4 % (10.5-14.5); WBC 4.3 thou/uL (4.0-11.0)
--- NOTE | 2019-05-10 05:31 | NUR ---
ASSUMED PT CARE AT 1930. NURSING ASSESSMENT COMPLETED AT START OF SHIFT. PT VOICED NO CONCERNS THIS SHIFT. DENIES PAIN. IVF INFUSING. HOURLY ROUNDING COMPLETED. OFFICE ASSISTANT RECEPTIONIST IN PLACE, TRACING SB/SR WITH OCCASIONAL PACS 1D AND BBB. Q2H REPOSITIONING COMPLETED. CALL LIGHT WITHIN REACH. NEGATIVE SEPSIS SCREENING THIS SHIFT.
[2019-05-10 05:43] LABS: CALCIUM 8.7 mg/dL (8.5-10.1); CREATININE 0.8 mg/dL (0.6-1.3); MAGNESIUM 2.1 mg/dL (1.8-2.4); POTASSIUM 4.1 mmol/L (3.5-5.1)
[2019-05-10 08:18] VITALS: BP 120/61
[2019-05-10 09:07] LABS: GLYCOHEMOGLOBIN (HGB A1C) 5.2 % (4.8-5.6)
[2019-05-10 12:00] VITALS: BP 104/57
--- NOTE | 2019-05-10 15:05 | NUR ---
VSS, ASSUMED CARE IN THE AM, ASSESSMENT PERFORMED AND CHARTED, FALL PRECAUTIONS IN PLACE AND CALL LIGHT IN REACH, PT IS A&O3-4 AND ON RA, HE GETS UP WITH ONE TO BSC AND HIS GOAL IS TO SIT UP IN CHAIR AND WALK IN ROOM, PT DENIES ANY PAIN BUT WANTS TO HAVE A SOFTER BM, PT IS TRACING SB/ST WITH MANY PAC ON MONITOR, WILL FOLLOW WITH PLAN OF CARE, AT THIS TIME PT IS UP IN CHAIR READING,
[2019-05-10 16:00] VITALS: BP 130/51
[2019-05-10 20:00] VITALS: BP 123/64
[2019-05-11] VITALS: BP 141/70
[2019-05-11 04:00] VITALS: BP 126/61
[2019-05-11 04:27] LABS: HEMATOCRIT 31.6 % (42.0-52.0); HEMOGLOBIN 10.7 gm/dL (14.0-18.0); MCH 31.8 pg (26.0-34.0); MCHC 33.8 g/dL (28.0-37.0); MCV 94.1 fL (80.0-100.0); MPV 8.5 fl. (7.2-11.1); RBC 3.36 mil/uL (4.50-6.00); RDW-CV 13.6 % (10.5-14.5); WBC 3.5 thou/uL (4.0-11.0)
[2019-05-11 04:36] LABS: CALCIUM 8.5 mg/dL (8.5-10.1); CREATININE 0.8 mg/dL (0.6-1.3); MAGNESIUM 2.1 mg/dL (1.8-2.4); POTASSIUM 4.1 mmol/L (3.5-5.1)
--- NOTE | 2019-05-11 07:36 | NUR ---
ASSUMED PT CARE AT 1930. ASSESSMENT COMPLETED CHARTED. ABLE TO MAKE NEEDS KNOWN. NO C/O PAIN OR DISCOMFORT. Q2TURN FOR INCONTINENCE. PT RESTING IN BED MOST OF THE NIGHT. WILL CONTINUE TO MONITOR.
[2019-05-11 08:00] VITALS: BP 141/63
[2019-05-11 12:00] VITALS: BP 118/52
[2019-05-11 16:00] VITALS: BP 135/54
--- NOTE | 2019-05-11 17:22 | NUR ---
PATIENT RESTING UP IN CHAIR. PATIENT IS UP WITH ASSIST OF ONE. PATIENT DENIES ANY PAIN. PATIENT DENIES ANY TROUBLE BREATHING. PATIEN IS ON ROOM AIR. PATIENT HAS GOOD APPETITE. PATIENT DENIES ANY NEEDS AT THIS TIME. CALL LIGHT WITHIN REACH. WILL CONTINUE TO MONITOR.
[2019-05-11 20:00] VITALS: BP 130/68
[2019-05-12] VITALS: BP 153/49
[2019-05-12 04:00] VITALS: BP 141/60
[2019-05-12 08:00] VITALS: BP 137/65
[2019-05-12] MEDS ORDERED: NITROFURANTOIN100 MG PO (10:04)
[2019-05-12] MEDS ORDERED: MIRALAX17 GM PO (10:04)
[2019-05-12] MEDS ORDERED: DULCOLAX5 MG PO (10:04)
[2019-05-12] MEDS ORDERED: DOK PLUS TABLE1 EACH PO (10:04)
[2019-05-12 11:00] VITALS: BP 137/70
--- NOTE | 2019-05-12 11:46 | NUR ---
ASSUMED PT CARE AT 0800. AOX4, FORGETFUL. O2 SAT 90'S RA. SBA WITH WALKER. PT FOR ACCU CHECK. PT FOR DISCHARGE. TRACING SINUS DAVIS ON TELE. ABDOMEN DISTENDED. PT RECEIVE LAXATIVE, ENEMA. VSS, AM ASSESSMENT CHARTED. MEDS GIVEN PER MAR. CALL LIGHT WITHIN REACH, HOURLY ROUNDING.WILL CONTINUE TO MONITOR.
[2019-05-12 12:34] VITALS: BP 137/65
--- NOTE | 2019-05-12 14:05 | NUR ---
INITIAL ASSESSMENT: Pt evaluated for d/c planning needs. Reviewed chart and spoke with nurse and pt. Pt is alert and oriented. Pt lives in his own home and son and D-I-L live with him. Pt uses walker for ambulation and has had home health in the past. He does not recall name of company used. Pt said he is able to toilet and dress himself. Pt plans on returning home. Pt said he has not transportation home, so was given cab voucher with 10/10 taxi. No other needs identified.
--- NOTE | 2019-05-12 14:53 | NUR ---
DISCUSSED DISHARGE PLAN WITH PT. MEDICATION PACKET/SCRIPT GIVEN. IV, TELE REMOVED.REMINDED TO FOLLOW UP WITH PCP. ALL BELONGINGS PACKED AND CHECKED. LEFT THE UNIT 1400 VIA CAB.
== END 2019-05-12 14:00 | disposition home or self-care (01) | DRG 871 ==
LOC: M.ERS 22:52 → M.TBA-ER 05-09 00:39 → M.2W 05-09 00:39
PROVIDERS: Family Medicine; Internal Medicine; ADMIT Internal Medicine
DX: A41.9 Sepsis, unspecified organism (principal); G92 Toxic encephalopathy; N39.0 Urinary tract infection, site not specified; I69.354 Hemiplegia and hemiparesis following cerebral infarction affecting left non-dominant side; I10 Essential (primary) hypertension; J45.909 Unspecified asthma, uncomplicated; F32.9 Major depressive disorder, single episode, unspecified; E11.9 Type 2 diabetes mellitus without complications; E86.0 Dehydration; G47.33 Obstructive sleep apnea (adult) (pediatric); E03.9 Hypothyroidism, unspecified; R53.81 Other malaise; R29.6 Repeated falls; K59.09 Other constipation; Z90.49 Acquired absence of other specified parts of digestive tract; Z86.718 Personal history of other venous thrombosis and embolism; Z79.51 Long term (current) use of inhaled steroids; Z79.899 Other long term (current) drug therapy; Z88.1 Allergy status to other antibiotic agents; Z88.2 Allergy status to sulfonamides; Z88.8 Allergy status to other drugs, medicaments and biological substances; Z88.6 Allergy status to analgesic agent; Z91.041 Radiographic dye allergy status

== ENCOUNTER 2019-08-07 19:16 | Inpatient (IN) | payer OTHER, MEDICAID ==
[~2019-08-07] VITALS: Ht 182.9 cm; Wt 125.6 kg
[~2019-08-07 19:16] MED LIST changes: +DOK PLUS TABLE1 EACH PO; +DULCOLAX5 MG PO; +FIBER350 GM PO
[2019-08-07 19:23] VITALS: BP 121/48
[2019-08-07] MEDS ORDERED: RISPERDAL0.5 MG PO (19:31)
[2019-08-07] MEDS ORDERED: IBUPROFEN 400400 M2 PO (19:32)
[2019-08-07] MEDS ORDERED: TYLENOL325 MG PO (19:32)
[2019-08-07 19:40] LABS: URINE BLOOD NEGATIVE (Negative); URINE CLARITY SL CLOUDY; URINE COLOR YELLOW; URINE GLUCOSE-RANDOM NEGATIVE (Negative); URINE KETONES TRACE (Negative); URINE LEUKOCYTES-REFLEX NEGATIVE (Negative); URINE NITRITE-REFLEX NEGATIVE (Negative); URINE PROTEIN NEGATIVE (Negative); URINE SPECIFIC GRAVITY 1.025 (1.005-1.030); URINE UROBILINOGEN 0.2 E.U./dl (0.2-1.0)
[2019-08-07 19:44] LABS: ICTOTEST (BILI CONFIRMATORY) Negative (Negative); URINE BILIRUBIN 1+ (Negative)
[2019-08-07 19:49] LABS: ABSOLUTE BASOPHILS 0.1 thou/uL (0.0-0.2); ABSOLUTE EOSINOPHILS 0.3 thou/uL (0.0-0.7); ABSOLUTE LYMPHOCYTES 1.1 thou/uL (0.8-5.3); ABSOLUTE MONOCYTES 0.4 thou/uL (0.0-1.2); BASOPHILS 1.3 %; EOSINOPHILS 6.4 %; HEMATOCRIT 36.3 % (42.0-52.0); HEMOGLOBIN 12.4 gm/dL (14.0-18.0); LYMPHOCYTES 21.9 %; MCH 31.9 pg (26.0-34.0); MCV 93.9 fL (80.0-100.0); MONOCYTES 8.9 %; MPV 7.9 fl. (7.2-11.1); NUCLEATED RBCS 0 /100WBC; PLATELET COUNT* 208 thou/uL (150-400); POLYS 61.5 %; RBC 3.87 mil/uL (4.50-6.00); RDW-CV 13.8 % (10.5-14.5); WBC 4.9 thou/uL (4.0-11.0)
[2019-08-07 19:57] LABS: CALCIUM 8.9 mg/dL (8.5-10.1); CREATININE 1.3 mg/dL (0.6-1.3); POTASSIUM 4.9 mmol/L (3.5-5.1)
[2019-08-07 20:02] LABS: ALBUMIN 3.2 g/dL (3.4-5.0); TOTAL BILIRUBIN 0.2 mg/dL (<0.1-1.0); TOTAL PROTEIN 6.5 g/dL (6.4-8.2)
[2019-08-08 00:03] VITALS: BP 150/64
--- NOTE | 2019-08-08 00:20 | NUR ---
ALERT AND ORIENTED X 4 MALE PATIENT TO ROOM 115 BY BED FROM ER IN STABLE CONDITION. BRIEF CHECKED ON ARRIVAL. VITAL SIGNS STABLE. ADMISSION ROUTINES IN PROGRESS. CONTINUE TO MONITOR.
[2019-08-08 00:30] VITALS: BP 126/63
--- NOTE | 2019-08-08 05:33 | NUR ---
PATIENT HAS REMAINED ALERT AND ORIENTED X 4 THROUGHOUT THE SHIFT AND RESTING QUIETLY ON HOURLY ROUNDS. ASSIST FOR VOIDS AND ALSO INCONT. BEDREST PER ORDER. TURNS ENCOURAGED. PT/OT EVALUATION AND NEUROLOGY CONSULT PENDING. CONTINUE TO MONITOR.
--- NOTE | 2019-08-08 07:53 | NUR ---
CALL TO BOTH SUSANA KING AND SOPHIE Mcnair TO REQUEST FOR PATIENT CPAP, UPPER DENTURE AND GLASSES BE BROUGHT TO HOSPITAL. MESSAGES LEFT.
[2019-08-08 08:00] VITALS: BP 125/68
[2019-08-08 09:35] LABS: CALCIUM 8.5 mg/dL (8.5-10.1); MAGNESIUM 2.2 mg/dL (1.8-2.4); POTASSIUM 4.7 mmol/L (3.5-5.1)
--- NOTE | 2019-08-08 12:41 | EKG ---
[place] [address] ELECTROCARDIOGRAM REPORT Name: IVAN CHACON SR Room: [address] ADM IN M.R.#: [id number] Admission: 08/07/19 Attend Phys: Eula Ramirez Discharge: Date of : 36 Report #: [id number] THIS REPORT FOR: //name// [facility] ED Test Date: 2019-08-07 Test Time: 19:25:40 Pat Name: IVAN CHACON Department: Room: [address] Gender: M Telephone Order Clerk: ANTONIO : 1940 Requested By: Eula Blake Order Number: [id number] Nadeen MD: Joe Leroy Measurements Intervals [place] Rate: 94 P: 45 PA: 191 QRS: -70 QRSD: 158 T: 35 QT: 359 QTc: 449 Interpretive Statements Sinus rhythm RBBB and LAFB Baseline wander in lead(s) V2 Compared to ECG 05/08/2019 23:47:11 Sinus bradycardia no longer present Atrial premature complex(es) no longer present Electronically Signed On 08-08-2019 12:41:36 CDT by Joe Leroy [email or web address] <ELECTRONICALLY SIGNED> By: Joe Leroy MD, [facility] 08/08/19 1241 24 24 Joe Leroy MD, [facility] /EPI
--- NOTE | 2019-08-08 13:30 | NUR ---
SW met with pt and pt son to complete assessment and discuss safe dc planning. Pt had lived at home with family and had most recently left a behavioral/psych stay and [facility]. Pt and pt family requesting LTC placement at dc. Pt son states that pt is pending Medicaid and that [facility] had started the process so pt son wanted pt to try to go to [facility]. Pt asked son to leave the room and then told SW that he didn't care where he went but that he did want to specify that he does not want to go to [facility] or [facility]. Pt said he would want to go to [facility] in [place] possibly. SW to send referral and SW explained that SW/CM will continue to follow to assist with safe dc planning and LTC placement.
--- NOTE | 2019-08-08 18:19 | NUR ---
THIS NURSE AGREES WITH MORNING ASSESSMENT OF TASH GAYTAN.
--- NOTE | 2019-08-08 18:20 | NUR ---
Assessment completed, pt A&Ox4, isolation precautions maintained, new IV in right forearm, Q2 turns completed, fall precautions in place, hourly rounding completed. Will continue to monitor.
[2019-08-08 21:04] VITALS: BP 128/63
--- NOTE | 2019-08-09 04:59 | NUR ---
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 NASAL SWAB HAS BEEN SENT. ON 2 L OXYGEN. HE SLEPT THROUGH NIGHT REQUESTED NOTHING FOR PAIN OR NO REPORT OF NAUSEA. USED CPAP AT NIGHT. PT/OT IS CONSULTED TO SEE HIM Sunday08/09/19. WILL CONTINUE TO MONITOR.
[2019-08-09 08:45] VITALS: BP 145/64
--- NOTE | 2019-08-09 17:53 | NUR ---
PATIENT ALERT AND ORIENTED X 4. VITAL SIGNS STABLE ON 2L O2 NASAL CANULA. AFEBRILE. VOIDING PER URINAL. DENIES PAIN AND NAUSEA AT THIS TIME. IV PATENT AND SALINE LOCKED. FALL PRECAUTION IN PLACE AND BED ALARM ON. HOURLY ROUNDS MAINTAINED THROUGHOUT THE SHIFT. CALL LIGHT WITHIN REACH. NURSING WILL CONTINUE TO MONITOR.
[2019-08-09 20:26] VITALS: BP 98/43
[2019-08-10 05:06] VITALS: BP 118/64
--- NOTE | 2019-08-10 05:49 | NUR ---
PATIENT STILL USING TOWEL FOR URINATING BUT DID GET UP WITH ASSISTANCE AND USED A WALKER TO URINATE ONCE. HE NEEDED TYLENOL ONCE FOR RIGHT SHOULDER PAIN. ORDERED OATMEAL FOR BREAKFAST HE WAS NEEDED SOFT FOODS. HE WAS ABLE TO SLEEP THROUGH THE NIGHT WILL CONTINUE TO MONITOR.
[2019-08-10 08:15] VITALS: BP 133/61
[2019-08-10 15:42] VITALS: BP 119/64
--- NOTE | 2019-08-10 17:57 | NUR ---
PATIENT ALERT AND ORIENTED X 4. VITAL SIGNS STABLE ON 2L O2 NASAL CANULA. AFEBRILE. IV PATENT AND SALINE LOCKED. DENIES PAIN AND NAUSEA AT THIS TIME. VOIDING PER URINAL. FALL PRECAUTIONS IN PLACE AND BED ALARM ON. HOURLY ROUNDS MAINTAINED THROUGHOUT THE SHIFT. CALL LIGHT WITHIN REACH. NURSING WILL CONTINUE TO MONITOR.
[2019-08-10 20:28] VITALS: BP 137/57
--- NOTE | 2019-08-11 04:43 | NUR ---
PATIENT DID NOT REPORT NEW OR WORSENING ONSET OF PAIN, REQUESTED NO PAIN MEDS. HE IS HAVING GOOD URINE OUTPUT. OFF OXYGEN IS SAT IS 95% ROOM AIR. HE WAS ABLE TO STAND WITH WALKER TO URINATE. SLEPT THROUGH NIGHT. WILL CONTINUE TO MONITOR.
[2019-08-11] MEDS ORDERED: TRAMADOL 50 MG50 MG PO (10:16)
[2019-08-11] MEDS ORDERED: THERA M PLUS T1 EAC2 PO (10:16)
--- NOTE | 2019-08-11 12:00 | NUR ---
PER TAMIR,RAIN, [facility] DECLINED TO ACCEPT PT. SHE RECEIVED MESSAGE FROM [facility] AND THEY STATED PT.WILL NEED A LEVEL 2 SCREENING PRIOR TO THEM ACCEPTING HIM, DUE TO HIS RECENT STAY AT [facility],FOR SI. CM WILL BEGIN LEVEL 2 SCREENING PAPERWORK.
--- NOTE | 2019-08-11 16:22 | NUR ---
SON,FERNANDO BROUGHT INFORMATION IN ON PT.'S MEDICAID [place]END[place]. FAXED TO [facility]/ADMITTING. EXPLAINED TO SON AND PT.ABOUT LEVEL 2 SCREENING AND THAT IT COULD TAKE UP TO 10 DAYS. SON HAD TO LEAVE. PT.SHOWED CM AD IN PAPER FOR THE [facility]. HE SAID HE WOULD LIKE ME TO MAKE A REFERRAL THERE. HE ALSO SAID [facility]. FAXED TO BOTH FACILITIES AND INFORMED OF MEDIC SPEND[facility].
[2019-08-11 17:10] VITALS: BP 128/66
--- NOTE | 2019-08-11 17:51 | NUR ---
PATIENT ALERT AND ORIENTED X 4. VITAL SIGNS STABLE ON ROOM AIR. AFEBRILE. UP WITH ASSISTANCE AND VOIDING PER URINAL. IV PATENT AND SALINE LOCKED. TOLERATED PHYSICAL THERAPY. PAIN BEING MANAGED WITH PO MEDICATION. DENIES NAUSEA AT THIS TIME. FALL PRECAUTIONS IN PLACE AND BED ALARM ON. HOURLY ROUNDS MAINTAINED THROUGHOUT THE SHIFT. CALL LIGHT WITHIN REACH. NURSING WILL CONTINUE TO MONITOR.
[2019-08-11 20:40] VITALS: BP 145/72
--- NOTE | 2019-08-12 05:41 | NUR ---
PATIENT REQUESTED TYLENOL FOR RIGHT SHOULDER PAIN. TOOK MEDS PRESCRIBED. NOW ON ROOM AIR AND SAT 95%. HE IS STILL ABLE TO GET UP WITH WALKER TO USE URINAL WITH ASSISTANCE. PLAN IS TO D/C UPON REHAB PLACEMENT. WILL CONTINUE TO MONITOR.
[2019-08-12 07:41] VITALS: BP 144/70
[2019-08-12] MEDS ORDERED: SYMBICORT160 MCG/4. INH (10:03)
--- NOTE | 2019-08-12 14:19 | NUR ---
THIS RN INSTRUCTOR AGREES WITH THE ASSESSMENT OF SN PASCUAL FOR 08/12/19 AT 1223.
[2019-08-12 16:02] VITALS: BP 112/63
--- NOTE | 2019-08-12 16:11 | NUR ---
ASSESSMENT COMPLETE. PT ALERT AND ORIENTED X4. PT DENIES PAIN. REPORTS CONSTIPATION, SUPPOSITORY GIVEN AND PATIENT HAD LARGE FORMED BM. PT IS ACCU CHECK ACHS. PT IS ON ROOM AIR, VSS. PT DENIES N/V TOLERATING MEALS. PT USES URINAL AND TOWEL BETWEEN LEGS NEEDED, WILL NOTIFY IF INCONT. PT IS UP ONE ASSIST WITH WALKER AND GAIT BELT. PT IS FALL RISK, BED ALARM ON. SEE ASSESSMENT AND VITALS FOR OTHER DETAILS. CALL LIGHT WITHIN REACH, WILL CONTINUE PLAN OF CARE
--- NOTE | 2019-08-12 17:56 | NUR ---
ASSUMED CARE OF PATIENT AT 1700 FROM [facility]. NO COMPLAINTS AT THIS TIME. IV SL. UP TO BEDSIDE WITH ASSISTANCE AND USE OF WALKER TO VOID. BED ALARM ON FOR PATIENT SAFETY. TOLERATING DIET.
[2019-08-12 21:00] VITALS: BP 127/53
--- NOTE | 2019-08-13 05:10 | NUR ---
ASSUMED CARE AT 2050H, ON RA AND WITH LEFT SIDE WEAKNESS NOTED. NO DISTRESS NOTED. STILL WAITING FOR SNF/INPATIENT REHAB APPROVAL. CONTINUE MONITORING AND TOWARDS GOAL.
[2019-08-13 08:00] VITALS: BP 123/65
--- NOTE | 2019-08-13 11:11 | NUR ---
GEORGINA JUARES/[facility] WILL BE OUT TO VISIT PT. , PART OF LEVEL 2 SCREENING PROCESS, AT 141
[2019-08-13 16:59] VITALS: BP 115/69
--- NOTE | 2019-08-13 17:11 | NUR ---
GEORGINA/[facility] SAID PT.DID WELL ON HIS ASSESSMENT. SHE WILL WRITE UP HER REPORT AND SEND IT TO THE STATE. SPOKE WITH SORIN/ADA OF [facility]. SHE SAID THEY CAN ACCEPT PT.AT DISCHARGE. BUT MUST HAVE THE LEVEL 2 BACK AND COPY BEFORE THEY CAN TAKE HIM INTO THE BUILDING. SPOKE WITH [facility]. SHE ASKED THAT I SEND NEW REFERRAL ON PT. FAX #[phone]. FAXED REFERRAL TO HER. CHECKED AGAIN WITH MER AT THE [facility]. SHE SAID NO BED AVAILABILITY YET. INFORMED PT.OF ALL OF THE ABOVE.
--- NOTE | 2019-08-13 17:18 | NUR ---
PT SITTING IN CHAIR MOST OF SHIFT. TOLERATING PO WELL. BACK PAIN CONTROLLED WITH TYLENOL. UP TO BR WITH ASSIST AWAITING APPROVAL FOR SNF PLACEMENT
[2019-08-13 20:20] VITALS: BP 99/66
--- NOTE | 2019-08-14 06:00 | NUR ---
ALERT AND ORIENTED X 4 THROUGHOUT THE NIGHT. APPROPRIATE CONVERSATION WITH TIS STAFF. DID STAND TO URINATE AND VOIDED ON FLOOR INSTEAD OF USING URINAL. UNABLE TO GIVE RATIONAL. UP WITH ASSIST OF ONE. VITAL SIGNS STABLE. CONTINUE TO MONITOR.
[2019-08-14 16:00] VITALS: BP 109/63
--- NOTE | 2019-08-14 19:00 | NUR ---
PATIENT PLEASANT AND COOPERATIVE W/ ASSESS AND CARES. UP TO CHAIR THIS AFTERNOON. WATCHING TV. EATING INDEP. CALL LIGHT IN REACH. AWAITING SNF PLACEMENT. ~TJRN
[2019-08-14 21:00] VITALS: BP 109/54
[2019-08-15 04:09] LABS: ABSOLUTE BASOPHILS 0.1 thou/uL (0.0-0.2); ABSOLUTE EOSINOPHILS 0.2 thou/uL (0.0-0.7); ABSOLUTE LYMPHOCYTES 1.2 thou/uL (0.8-5.3); ABSOLUTE MONOCYTES 0.3 thou/uL (0.0-1.2); ABSOLUTE NEUTROPHILS 2.1 thou/uL (1.6-8.1); BASOPHILS 1.3 %; HEMATOCRIT 34.1 % (42.0-52.0); HEMOGLOBIN 11.4 gm/dL (14.0-18.0); LYMPHOCYTES 30.8 %; MCH 31.6 pg (26.0-34.0); MCHC 33.5 g/dL (28.0-37.0); MCV 94.2 fL (80.0-100.0); MONOCYTES 7.3 %; MPV 8.4 fl. (7.2-11.1); NUCLEATED RBCS 0 /100WBC; PLATELET COUNT* 143 thou/uL (150-400); POLYS 55.6 %; RBC 3.62 mil/uL (4.50-6.00); RDW-CV 13.1 % (10.5-14.5); WBC 3.8 thou/uL (4.0-11.0)
[2019-08-15 04:16] LABS: CALCIUM 9.1 mg/dL (8.5-10.1); CREATININE 0.8 mg/dL (0.6-1.3); POTASSIUM 4.1 mmol/L (3.5-5.1)
--- NOTE | 2019-08-15 07:37 | NUR ---
Alert and oriented x 4. He is clear but diminished lungs, uses Cpap at night. Vitals have been stable. He has been up with assist and walker to the bathroom. He has slept well.
[2019-08-15 08:30] VITALS: BP 125/65
--- NOTE | 2019-08-15 11:19 | NUR ---
SPOKE WITH PT.'S SON AT DESK. UPDATED HIM THAT WE ARE STILL WAITING ON LEVEL 2 SCREEN TO RETURN FROM THE STATE. [facility] CAN ACCEPT HIM,WHEN THAT RETURNS. [facility] WOULD LIKE TO SEE THE LEVEL 2 BEFORE GIVING AN ACTUAL YES/NO. [facility] HAS NOT CALLED BACK. SON WOULD LIKE TO CALL TO SPEAK WITH SOMEONE AT EACH FACILITY TO SEE HOW MUCH COST WOULD BE. GAVE HIM PHONE NUMBERS.
--- NOTE | 2019-08-15 17:07 | NUR ---
PATIENT ALERT AND ORIENTED X 4. VITAL SIGNS STABLE ON ROOM AIR. AFEBRILE. UP WITH ASSISTANCE. VOIDING PER URINAL. UP TO CHAIR FOR MEALS. IV PATENT AND SALINE LOCKED. PAIN BEING MANAGED WITH PO MEDICATION. DENIES NAUSEA AT THIS TIME. FALL PRECAUTIONS IN PLACE AND BED ALARM ON. HOURLY ROUNDS MAINTAINED THROUGHOUT THE SHIFT. CALL LIGHT WITHIN REACH. NURSING WILL CONTINUE TO MONITOR.
[2019-08-15 21:15] VITALS: BP 129/63
--- NOTE | 2019-08-16 06:15 | NUR ---
PATIENT HAS SLEPT WELL THROUGHOUT THE NIGHT. VSS ON RA. NO C/O PAIN. PATIENT ON CPAP AT HS. IV IN RIGHT FOREARM-SL. PATIENT AWAITING PLACEMENT AT FACILITY. FALL PRECAUTIONS IN PLACE AND HOURLY ROUNDS MADE. WILL CONTINUE WITH PLAN OF CARE AND NURSING TO MONITOR.
[2019-08-16 09:20] VITALS: BP 104/61
--- NOTE | 2019-08-16 19:00 | NUR ---
PATIENT COOPERATIVE W/ ASSESS AND CARES. PATIENT EDUCATED ON USING URINAL FOR VOIDS. PATIENT NOTED USING TOWEL TO CATCH URINE. PATIENT VERBALIZES THAT HE KNOWS WHEN HE HAS TO GO AND HOW TO USE THE URINAL. PATIENT UP W/ SBA, TO RECLINER FOR MEALS. ALERT AND ORIENTED, FORGETFUL AT TIMES. IV CATH SITE NOTED WNL. NO PAIN VOICED. DENIES BURNING/PAIN W/ URINATION. NO N/V VOICED. CALL LIGHT IN REACH. HRLY ROUNDS DONE. ~TJRN
[2019-08-16 20:00] VITALS: BP 128/63
--- NOTE | 2019-08-17 05:09 | NUR ---
ASSUMED CARE OF PT AFTER REPORT AT 1930. PT A&OX4. VSS. PHYSICAL ASSESSMENT COMPLETED AND CHARTED. PT ON RA/CPAP WHEN SLEEPING. PT COMPLAINED OF RIGHT SHOULDER PAIN- MEDS GIVEN PER JAN. PT ABLE TO SLEEP WELL ON BED. CALL LIGHT WITHINM REACH.
[2019-08-17 09:10] VITALS: BP 105/75
[2019-08-17 15:44] VITALS: BP 145/75
--- NOTE | 2019-08-17 19:00 | NUR ---
PATIENT ALERT AND ORIENTED THRU SHIFT. EATING WELL. IV CATH SITE NOTED WNL, FLUSHES EASILY. INCONTINENT OF URINE, PATIENT STATES HE IS AWARE THAT HE HAS TO GO. PATIENT INSTRUCTED TO USE URINAL. UP IN RECLINER WATCHING TV THIS AFTERNOON. NO ACUTE DISTRESS NOTED. CURRENTLY RESTING IN BED W/ RM DARKENED. CPAP ON. CALL LIGHT IN REACH. PERSONAL ITEMS WITHIN REACH. CALM. ~TJRN
[2019-08-17 22:10] VITALS: BP 153/70
--- NOTE | 2019-08-18 05:35 | NUR ---
PT SLEEPING THROUGH THE NIGHT WITH CPAP ON. MEDS GIVEN ORDERED. USED URINAL FOR VOIDS. TRAMADOL GIVEN FOR SHOULDER PAIN. HOURLY ROUNDING COMPLETED. WILL CONTINUE TO MONITOR.
[2019-08-18 08:40] VITALS: BP 132/50
--- NOTE | 2019-08-18 12:00 | NUR ---
SPOKE WITH PT.AND SON. EXPLAINED STILL WAITING FOR LEVEL 2 TO RETURN. THEY WANT REFERRALS TO BE SENT TO [facility] AND [facility]. THEY ARE NOW SAYING [facility] '[facility]' FAXED REFERRAL TO [facility] AND [facility]. SPOKE WITH BOTH OF THE ADMISSIONS COORD. THEY WILL REVIEW. KAYDEN SPOKE WITH BARBARA/UEXQO-[phone]. SHE SAID BY THEIR COMPUTER SYSTEM, LEVEL 2 SHOULD RETURN NO LATER THAN 08/25 BUT SHE FEELS SHOULD BE BACK MUCH SOONER THAN THAT, THEY HAVE THE NURSE REVIEWER WITH [facility]. INTERVIEW REPORT BACK. PT.SAID HE NEEDED NEW TUBING FOR CPAP. CALLED AND SPOKE WITH ANGEL. SHE SAID THEY MAILED IT OUT ON 08/15 TO PTS HOME. SHOULD HAVE ARRIVED OR BE COMING SOON. KAYDEN CALLED SONFERNANDO AND INFORMED. HE SAID HE WOULD BRING IT TO HOSPITAL WHEN IT ARRIVE.
[2019-08-18 15:20] VITALS: BP 111/70
--- NOTE | 2019-08-18 17:25 | NUR ---
PATIENT ALERT AND ORIENTED X 4. VITAL SIGNS STABLE ON ROOM AIR. UP WITH ASSISTANCE AND VOIDING PER URINAL. IV PATENT AND SALINE LOCKED. PAIN BEING MANAGED WITH PO MEDICATION. DENIES NAUSEA. FALL PRECAUTIONS IN PLACE AND BED ALARM ON. HOURLY ROUNDS MAINTAINED THROUGHOUT THE SHIFT. CALL LIGHT WITHIN REACH. NURSING WILL CONTINUE TO MONITOR.
[2019-08-18 21:54] VITALS: BP 133/69
--- NOTE | 2019-08-19 04:53 | NUR ---
PATIENT DID NOT REPORT ANY PAIN UPON ASSESSMENT. HE WAS ABLE TO SLEEP THROUGH THE SHIFT WITHOUT ANY ISSUES. USING URINAL AND CAN GET UP TO THE CHAIR WITH ASSISTANCE. CLEARED BY MEDICAL. STILL WAITING ON LEVEL 2 PLACEMENT. WILL CONTINUE TO MONITOR.
[2019-08-19 09:00] VITALS: BP 113/62
--- NOTE | 2019-08-19 17:14 | NUR ---
ASSUMED CARE OF PATIENT AT APPROX 0730. ALERT AND ORIENTED X4. ASSESSMENT COMPLETED AND CHARTED. VSS ON ROOM AIR. NO COMPLAINTS OF PAIN THIS SHIFT. PATINET UP STAND BY ASSIST, USING WALKER. UP IN THE CHAIR TODAY AND USING THE BATHROOM. FALL PRECAUTIONS IN PLACE. CALL LIGHT WITHIN REACH. HOURLY ROUNDS COMPLETED. WILL CONTINUE TO MONITOR.
[2019-08-19 19:39] VITALS: BP 113/45
--- NOTE | 2019-08-20 05:36 | NUR ---
PATIENT WAS ABLE TO SLEEP THROUGH NIGHT, NO REPORTS OF PAIN. WAS ABLE TO GET UP WITH ASSISTANCE AND WALKER TO USE URINAL. NO REPORTS OF WORSENING WEAKNESS. PLAN IS TO TRANSFER TO [facility], PENDING APPROVAL.
[2019-08-20 08:00] VITALS: BP 124/61
--- NOTE | 2019-08-20 08:19 | NUR ---
LEVEL 2 SCREEN BACK LATE YESTERDAY. FAXED TO EACH FACILITY THAT ARE CONSIDERING PT.,BUT HAD TO HAVE THIS BACK BEFORE TOTAL ACCEPTANCE. 1)[facility], 2)[facility] OR 3)[facility]. WAITING FOR RETURN CALLS THIS AM. [facility] CAME TO VISIT PT.YESTERDAY AFTERNOON.
--- NOTE | 2019-08-20 10:06 | NUR ---
Nutrition: pt discharge pending placement. Prior nsg noted pt eating well, No wt since admit. Defer further assessement.
--- NOTE | 2019-08-20 15:00 | NUR ---
[facility] HAS AGREED TO ACCEPT PT.TO THEIR FACILITY FOR LTC. THIS WAS PT.'S FIRST CHOICE. THEY ATTEMPTED TO SKILL HIM BUT HIS INS.WAS OUT OF NETWORK FOR THEIR FACILITY AND WITHOUT OON BENEFITS. THEY WILL DO RESTORATIVE THERAPY. THEY ORDERED LARGER BED FOR PT. LEFT MESSAGE FOR SON,FERNANDO TO BRING WC AND WALKER FROM HOME TO [facility] IF POSS. PT.HAS CPAP WITH HIM AND WILL TAKE IT TO [facility]. CHART COPIED. [facility]ER[facility] HAS NUMBER TO CALL REPORT. FAXED DISCHARGE ORDERS AND MED ORDERS TO [facility] . THEIR WC VAN IS SET UP FOR 1600. PT.INFORMED.
[2019-08-20 15:40] VITALS: BP 124/61
--- NOTE | 2019-08-20 18:36 | NUR ---
ASSUMED CARE OF PATIENT AT APPROX 0730. ALERT AND ORIENTED X4. ASSESSMENT COMPLETED AND CHARTED. VSS ON ROOM AIR. NO COMPLAINTS THIS SHIFT. PATIENT UP STAND BY ASSIST WITH WALKER. UP TO THE CHAIR THROUGHOUT THE DAY. PATIENT RESTLESS AND LONELY, CALLS OUT FREQUENTLY. PATIENT DISCHARGED AT 1610 WITH ALL PERSONAL BELONGINGS, PRESCRIPTIONS AND DISCHARGE PACKET. PATIENT TRANSPORTED TO [facility] VIA WHEELCHAIR VAN.
== END 2019-08-20 16:10 | DRG 552 ==
LOC: M.ERS 19:16 → M.ORTHSURG 22:32 → M.TBA-ER 22:32 → M.ORTHSURG 08-08 00:28
PROVIDERS: Emergency Medicine; Family Medicine; ADMIT Family Medicine
DX: M48.061 Spinal stenosis, lumbar region without neurogenic claudication (principal); I69.354 Hemiplegia and hemiparesis following cerebral infarction affecting left non-dominant side; I10 Essential (primary) hypertension; J45.909 Unspecified asthma, uncomplicated; F32.9 Major depressive disorder, single episode, unspecified; G47.33 Obstructive sleep apnea (adult) (pediatric); N40.0 Benign prostatic hyperplasia without lower urinary tract symptoms; E66.01 Morbid (severe) obesity due to excess calories; J45.20 Mild intermittent asthma, uncomplicated; F41.9 Anxiety disorder, unspecified; E11.9 Type 2 diabetes mellitus without complications; Z88.8 Allergy status to other drugs, medicaments and biological substances; Z88.6 Allergy status to analgesic agent; Z88.1 Allergy status to other antibiotic agents; Z91.041 Radiographic dye allergy status; Z82.49 Family history of ischemic heart disease and other diseases of the circulatory system; Z86.718 Personal history of other venous thrombosis and embolism; Z90.49 Acquired absence of other specified parts of digestive tract; Z88.2 Allergy status to sulfonamides; Z87.891 Personal history of nicotine dependence; Z68.37 Body mass index [BMI] 37.0-37.9, adult; J20.9 Acute bronchitis, unspecified

== ENCOUNTER 2020-11-08 08:00 | Inpatient (IN) | payer OTHER, MEDICAID ==
[~2020-11-08] VITALS: Ht 182.9 cm; Wt 130.6 kg
[~2020-11-08 08:00] MED LIST changes: +RISPERDAL0.5 MG PO; +SYMBICORT160 MCG/4. INH; +THERA M PLUS T1 EAC2 PO; +TRAMADOL 50 MG50 MG PO
[2020-11-08 08:07] VITALS: BP 115/42
[2020-11-08] MEDS ORDERED: BENEFIBER236 GM PO (08:14)
[2020-11-08] MEDS ORDERED: BUPROPION HCL150 M1 PO (08:18)
[2020-11-08] MEDS ORDERED: ACID CONTROLLER20 MG PO (08:19)
[2020-11-08] MEDS ORDERED: THEREMS-M1 EACH PO (08:21)
[2020-11-08] MEDS ORDERED: TRAZODONE HCL50 MG PO (08:21)
[2020-11-08] MEDS ORDERED: WIXELA 250-501 EACH INH (08:22)
[2020-11-08] MEDS ORDERED: MILK OF MA400 MG/5 M PO (08:23)
[2020-11-08] MEDS ORDERED: TRAMADOL 50 MG50 MG PO (08:23)
[2020-11-08] MEDS ORDERED: ZOLOFT25 MG PO (08:24)
[2020-11-08 08:38] LABS: ABSOLUTE EOSINOPHILS 0.2 thou/uL (0.0-0.7); ABSOLUTE LYMPHOCYTES 0.8 thou/uL (0.8-5.3); ABSOLUTE MONOCYTES 0.3 thou/uL (0.0-1.2); ABSOLUTE NEUTROPHILS 2.1 thou/uL (1.6-8.1); BASOPHILS 0.9 %; EOSINOPHILS 6.9 %; HEMATOCRIT 35.3 % (42.0-52.0); HEMOGLOBIN 11.3 gm/dL (14.0-18.0); LYMPHOCYTES 23.6 %; MCH 29.1 pg (26.0-34.0); MCHC 32.1 g/dL (28.0-37.0); MCV 90.5 fL (80.0-100.0); MONOCYTES 8.7 %; MPV 7.8 fl. (7.2-11.1); NUCLEATED RBCS 0 /100WBC; PLATELET COUNT* 178 thou/uL (150-400); POLYS 59.9 %; RDW-CV 15.7 % (10.5-14.5); WBC 3.5 thou/uL (4.0-11.0)
[2020-11-08 08:52] LABS: CALCIUM 8.4 mg/dL (8.5-10.1); CREATININE 0.8 mg/dL (0.6-1.3); POTASSIUM 3.8 mmol/L (3.5-5.1)
[2020-11-08 08:57] LABS: ALBUMIN 2.5 g/dL (3.4-5.0); TOTAL BILIRUBIN 0.3 mg/dL (<0.1-1.0)
[2020-11-08 10:17] LABS: URINE BILIRUBIN NEGATIVE (Negative); URINE BLOOD 1+ (Negative); URINE CLARITY SL CLOUDY; URINE COLOR YELLOW; URINE GLUCOSE-RANDOM NEGATIVE (Negative); URINE KETONES NEGATIVE (Negative); URINE LEUKOCYTES-REFLEX 3+ (Negative); URINE NITRITE-REFLEX NEGATIVE (Negative); URINE PROTEIN TRACE (Negative); URINE SPECIFIC GRAVITY >= 1.030 (1.005-1.030)
[2020-11-08 10:28] LABS: SQUAMOUS 0-3 Few /LPF (0-3); URINE WBC-REFLEX >25 Many /HPF (0-5); WBC CLUMPS Many (None Seen)
[2020-11-08 10:29] LABS: BACTERIA-REFLEX >30 Many /HPF (None Seen); CASTS None Seen /LPF (None Seen); CRYSTALS None Seen /LPF (None Seen); MUCUS 0-3 Light strn/LPF (None Seen)
--- NOTE | 2020-11-08 10:31 | EKG ---
[place] [address] ELECTROCARDIOGRAM REPORT Name: IVAN CHACON SR Room: [place] [address] ADM IN R.#: [id number] Admission: 11/08/20 Attend Phys: Macho Spann, Discharge: Date of : 36 Date of Service: 11/08/20 0808 Report #: [id number] THIS REPORT FOR: //name// [facility] ED Test Date: 2020-11-08 Test Time: 08:08:16 Pat Name: IVAN CHACON Department: Room: [facility] Gender: M Bladder Blower: AUTUMN : 1940 Requested By: Juan Delvalle Order Number: [id number] MD: Joe Leroy Measurements Intervals [place] Rate: 70 P: 21 MA: 206 QRS: -49 QRSD: 176 T: 27 QT: 435 QTc: 470 Interpretive Statements Sinus rhythm Supraventricular bigeminy RBBB and LAFB Compared to ECG 08/07/2019 19:25:40 Atrial premature complex(es) now present Electronically Signed On 11-08-2020 10:31:16 EDGE CUTTER by Joe Leroy [email or web address] <ELECTRONICALLY SIGNED> By: Joe Leroy MD, FACC 11/08/20 1031 0808 Joe Leroy MD, FAC /EPI
[2020-11-08 11:43] VITALS: BP 125/56
--- NOTE | 2020-11-08 12:15 | NUR ---
PT ORIENTED TO ROOM AND UNIT. BED LOW AND LOCKED, SIDE RAILS UPX3, CALL LIGHT IN REACH. TELE APPLIED. WILL CONTIUE TO ASSESS.
[2020-11-08 12:54] VITALS: BP 126/60
[2020-11-08 17:26] VITALS: BP 121/71
--- NOTE | 2020-11-08 17:40 | NUR ---
PT HAS NO DENTURES WITH HIM AT THE HOSPITAL, CHANGE DIET TO MECHANICAL CHOPPED.
[2020-11-08 20:54] VITALS: BP 99/46
[2020-11-09] VITALS: BP 77/43
[2020-11-09 04:00] VITALS: BP 100/41
[2020-11-09 05:23] LABS: ABSOLUTE EOSINOPHILS 0.2 thou/uL (0.0-0.7); ABSOLUTE LYMPHOCYTES 1.2 thou/uL (0.8-5.3); ABSOLUTE MONOCYTES 0.4 thou/uL (0.0-1.2); ABSOLUTE NEUTROPHILS 1.8 thou/uL (1.6-8.1); EOSINOPHILS 6.1 %; HEMATOCRIT 32.7 % (42.0-52.0); HEMOGLOBIN 10.7 gm/dL (14.0-18.0); LYMPHOCYTES 32.2 %; MCH 29.9 pg (26.0-34.0); MCHC 32.9 g/dL (28.0-37.0); MCV 90.9 fL (80.0-100.0); MONOCYTES 10.2 %; NUCLEATED RBCS 0 /100WBC; PLATELET COUNT* 152 thou/uL (150-400); POLYS 50.5 %; RBC 3.59 mil/uL (4.50-6.00); RDW-CV 15.7 % (10.5-14.5); WBC 3.7 thou/uL (4.0-11.0)
[2020-11-09 05:31] LABS: CALCIUM 8.6 mg/dL (8.5-10.1); CREATININE 0.8 mg/dL (0.6-1.3); POTASSIUM 3.7 mmol/L (3.5-5.1)
[2020-11-09 08:00] VITALS: BP 96/50
--- NOTE | 2020-11-09 08:05 | NUR ---
PT IS ABLE TO COMMUNICATE HIS NEEDS TO STAFF EFFECTIVELY. HE HAS DENIED THE NEED FOR PAIN MEDICATION UP TO THIS TIME. SEIZURE PRECAUTIONS MAINTAINED. HE HAS BEEN INCONTINENT OF BOWEL AND BLADDER OVERNIGHT. NEUROLOGY FOLLOWING.
--- NOTE | 2020-11-09 11:29 | NUR ---
ASSUMED CARE OF PATIENT THIS AM AT 0730. PATIENT IS ALERT AND ORIENTED X 4. HE DENIES PAIN THIS AM. PATIENT HAS BEEN INCONTINENT OF URINE THIS AM. ASSISTED TO TURN Q 2 HR. PATIENT IS ON 3 LITERS NC. TELE SHOWS SR TO SB WITH 1DAVB AND BBB. HE IS TAKING HIS DIET WELL. COVID RESULTS ARE STILL PENDING
[2020-11-09 16:00] VITALS: BP 106/42
[2020-11-09 20:46] VITALS: BP 117/52
[2020-11-10 08:00] VITALS: BP 94/35
--- NOTE | 2020-11-10 09:13 | NUR ---
PT.IS FROM LTC AT [facility]. HE USES A CANE AND WALKER THERE. SPOKE WITH [facility]. SHE REQUESTED CLINICAL INFORMATION BE FAXED TO HER. JENNIFER MICHAUD FAXED INFORMATION YESTERDAY. MOVED UP TO RM 230 YESTERDAY AFTERNOON. HIS DPOA IS SON,FERNANDO.
--- NOTE | 2020-11-10 10:05 | NUR ---
RECIEVED REPORT AROUND 0715. ASSUMED CARE. PT LYING IN BED. IV'S INTACT. HEART MONITOR ATTACHED AT SA WITH PAC'S. PT SET UP FOR BREAKFAST. SPEECH THERAPY WORKKING WITH PT THIS AM. MEDS GIVEN PER JAN. PT STATED "NO" TO ANY PAIN. VS AND ASSESSMENT CHARTED. CALL LIGHT WITHIN REACH. WILL CONTINUE TO MONITOR.
--- NOTE | 2020-11-10 10:19 | NUR ---
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 PT USES A WHEELCHAIR FOR MOBILITY AND AND [facility] LIFT FOR TRANSFERS. PT IS INCONTINENT OF B&B. PT ABLE TO FEED HIMSELF. PT OWNS A CPAP BUT IS NON-COMPLIANT WITH USE. PT WEARS 2L O2 AT [facility]. [facility] ABLE TO ACCEPT PT AT D/C. CM WILL REMAIN AVAIALBLE TO ASSIST AND FOLLOW NEEDED. [facility] PHONE: [phone]
[2020-11-10 11:56] VITALS: BP 117/57
[2020-11-10 16:48] VITALS: BP 120/46
--- NOTE | 2020-11-10 19:00 | NUR ---
NO NEW CHANGES. PT LYING IN BED. POSSIBLE DISCHARGE TOMORROW. NEURO SIGNED OFF. IV INTACT. HEART MONITOR ATTACHED. CALL LIGHT WITHIN REACH. WILL CONITNUE TO MONITOR.
[2020-11-10 20:00] VITALS: BP 136/58
[2020-11-11] VITALS: BP 126/51
[2020-11-11 04:00] VITALS: BP 147/58
[2020-11-11 04:11] LABS: ABSOLUTE EOSINOPHILS 0.2 thou/uL (0.0-0.7); ABSOLUTE LYMPHOCYTES 1.1 thou/uL (0.8-5.3); ABSOLUTE MONOCYTES 0.3 thou/uL (0.0-1.2); ABSOLUTE NEUTROPHILS 1.6 thou/uL (1.6-8.1); BASOPHILS 1.3 %; EOSINOPHILS 6.9 %; HEMATOCRIT 34.5 % (42.0-52.0); HEMOGLOBIN 11.2 gm/dL (14.0-18.0); LYMPHOCYTES 33.8 %; MCH 29.2 pg (26.0-34.0); MCHC 32.5 g/dL (28.0-37.0); MCV 89.8 fL (80.0-100.0); MONOCYTES 9.4 %; MPV 7.7 fl. (7.2-11.1); NUCLEATED RBCS 0 /100WBC; PLATELET COUNT* 161 thou/uL (150-400); POLYS 48.6 %; RBC 3.84 mil/uL (4.50-6.00); RDW-CV 15.2 % (10.5-14.5); WBC 3.3 thou/uL (4.0-11.0)
[2020-11-11 04:23] LABS: CALCIUM 8.9 mg/dL (8.5-10.1); CREATININE 0.7 mg/dL (0.6-1.3); POTASSIUM 3.4 mmol/L (3.5-5.1)
[2020-11-11 08:00] VITALS: BP 116/47
[2020-11-11] MEDS ORDERED: DOXYCYCLINE 10100 MG PO (08:58)
[2020-11-11 11:00] VITALS: BP 109/54
--- NOTE | 2020-11-11 11:27 | NUR ---
ASSUMED CARE OF PT AT 0730. PT LYING IN BED WAITING FOR BREAKFAST. A&0X4, DENIES ANY PAIN OR SHORTNESS OF BREATH AT THIS TIME, SEIZURE PRECAUTIONS IN PLACE. TRACING SR WITH FIRST DEGREE, BBB AND PAC'S ON THE PARTY PLAN DEMONSTRATOR. ON 2L NC SAT UPPER 90'S. PT INCONT OF BOWEL AND BLADDER. LEFT SIDED HEMIPARESIS NOTED. PT GOAL FOR TODAY IS DISCHARGE BACK TO [facility]. AM ASSESSMENT CHARTED. MEDICATIONS PER JAN. PT REPOSITIONED EVERY 2 HOURS FOR COMFORT. HOURLY ROUNDING OBSERVED. BED IN LOW POSITON. BED ALARM IN PLACE. FALL PRECAUTIONS IN PLACE. SEIZURE PRECAUTIONS IN PLACE. CALL LIGHT WITHIN REACH. WILL CONTINUE PLAN OF CARE.
--- NOTE | 2020-11-11 12:19 | NUR ---
CM INFORMED DURING PRIME ROUNDING OF PLAN OF CARE FOR THE PT. PLAN FOR PT TO D/C TODAY BACK TO LONG-TERM CARE LEVEL OF CARE. CM SPOKE TO PT TO INFORM OF THIS AND HE IS IN AGREEMENT. CM ATTMEPTED TO CONTACT PT'S SON/DPOA TO INFORM OF THE SAME. NO ANSWER. CM LEFT A VOICEMAIL TO RETURN CALL WITH ANY QUESTIONS OR CONCERNS. CM INFORMED [facility] TECHNICIAN OF PT'S RETURN, AND [facility] CM ARRANGED [facility] NON-ENERGENT TRANSPORATION PER RN REQUEST FOR 1500, AND PROVIDED CONTACT INFO TO CALL REPORT. RN IN AGREEMENT. CM WILL REMAIN AVAILABLE TO ASSIST AND FOLLOW NEEDED. [facility] PHONE: [phone]
--- NOTE | 2020-11-11 16:31 | NUR ---
DISCHARGE ORDERS RECEIVED. DISCHARGE INSTRUCTIONS, CARE NOTES, SCRIPTS AND FOLLOW UP APPTS COPIED AND PLACED IN FOLDER FOR TRANSPORT. BOTH IV'S AND ASSORTER REMOVED. PT DISCHARGED WITH ALL BELONGINGS AND PAPERWORK VIA EMS. REPORT CALLED TO [facility]
--- NOTE | 2020-11-12 13:52 | EEG ---
[address] [address] EEG STUDY REPORT Name: IVAN CHACON Room: [address] IN M.R.#: [id number] Admission: 11/08/20 Attend Phys: Macho Spann MD Discharge: 11/11/20 Date of : 36 Report #: [id number] THIS REPORT FOR: cc: Leonard Kc MD, Dennis R MD ~ Isaías Smart MD DATE OF SERVICE: 11/10/2020 This patient is being evaluated for seizure. EEG was done by placing the electrode by standard 10-20 system of electrode placement. Both referential and sequential montages were used for recording. Background activity in this patient's EEG is about 7-8 Hz and 30 microvolts. The patient became drowsy that is associated with bilateral slowing. Photic stimulation is unremarkable. Throughout the record, no active epileptiform activity was noticed. Photic stimulation is unremarkable. IMPRESSION: This is a moderately abnormal EEG because it is disorganized and poorly formed and is intermixed with theta range slowing on both sides. That is a nonspecific abnormality, which can occur with encephalopathy, effect of psychotropic medication, dementia, etc. Clinical correlation is recommended. <ELECTRONICALLY SIGNED> By: Isaías Smart MD 11/12/20 1352 1252 [id number] Smart MD /wali
--- NOTE | 2020-11-12 13:52 | CON ---
[address] [address] CONSULTATION Name: IVAN CHACON Brice CASTORENA Room: [address] IN [place].#: [id number] Admission: 11/08/20 Attend Phys: Macho Spann MD Discharge: 11/11/20 Date of : 36 Report #: [id number] THIS REPORT FOR: cc: Leonard Kc MD, Dennis R MD ~ Isaías Smart MD DATE OF SERVICE: 11/08/2020 HISTORY OF PRESENT ILLNESS: This is an 80-year-old male patient who was evaluated by me for seizure. The patient does not remember anything about seizure. He says he is in a senior living because of what he described as the legs being numb for several decades. He is not a diabetic, but he does not know why his legs are numb. Records indicate that he was witnessed to have a tonic-clonic seizure and he also appeared to have pneumonia. His COVID workup is pending. REVIEW OF SYSTEMS: Positive for what he described as a neuropathy, but that question needs to be readdressed. He has a history of diarrhea, some history of CVA and dementia. He does not give history one way or another. One of the records says he has suicidal ideation. He has a history of DVT, diabetes, tonsillectomy, sleep apnea as I understand, this is a relevant 14-point review of system. PAST MEDICAL HISTORY: Positive for CVA as I understand. FAMILY HISTORY: Negative for seizures. SOCIAL HISTORY: He does not drink any alcohol. PHYSICAL EXAMINATION: The patient's examination is limited. He is alert. He is responsive. He can follow simple commands. He can tell me it is October. He could not tell me the exact date. He does appear to be weak on the left side, but the records says that is his baseline. He is alert and conversational. His position sense is present in both lower extremities and his reflexes also appeared to be present. There is no marked cardiac or respiratory abnormalities to explain his symptoms. His blood pressure is 121/71, respirations 17, pulse is 66, temperature is 98.5. LABORATORY DATA: His white count is 3.5. His lab indicated normal creatinine. His last TSH was normal. He did have a CT scan of the head, which was unremarkable except for chronic changes. IMPRESSION: By history, this patient has seizure. It is difficult for me to confirm that. If it is a new onset of seizure, he will need some more workup, [place] [address] CONSULTATION Name: IVAN CHACON Room: [address]#: [id number] Admission: 11/08/20 Attend Phys: Macho Spann MD Discharge: 11/11/20 Date of : 36 Report #: [id number] especially in the light of prior history of stroke. I will let him come off the COVID precautions and if it is negative, it will become much easier to do the workup and then we will do an EEG and an MRI on him. Thank you very much for this referral and we will follow up this patient with you. <ELECTRONICALLY SIGNED> By: Isaías Smart MD 11/12/20 1352 10 Pbelkis Smart MD /nt
== END 2020-11-11 16:38 | DRG 100 ==
LOC: M.ERS 08:00 → M.ORTHSURG 09:49 → M.TBA-ER 09:49 → M.ORTHSURG 12:02 → M.2W 11-10 00:05
PROVIDERS: Emergency Medicine Emergency Medical Services; ADMIT Internal Medicine; ATTEND Internal Medicine
DX: R56.9 Unspecified convulsions (principal); J69.0 Pneumonitis due to inhalation of food and vomit; I69.354 Hemiplegia and hemiparesis following cerebral infarction affecting left non-dominant side; E66.01 Morbid (severe) obesity due to excess calories; Z20.828 Contact with and (suspected) exposure to other viral communicable diseases; I10 Essential (primary) hypertension; J45.909 Unspecified asthma, uncomplicated; Z91.041 Radiographic dye allergy status; F41.9 Anxiety disorder, unspecified; E11.9 Type 2 diabetes mellitus without complications; F32.9 Major depressive disorder, single episode, unspecified; Z90.49 Acquired absence of other specified parts of digestive tract; Z88.2 Allergy status to sulfonamides; Z68.39 Body mass index [BMI] 39.0-39.9, adult; Z86.718 Personal history of other venous thrombosis and embolism; Z88.8 Allergy status to other drugs, medicaments and biological substances; Z88.6 Allergy status to analgesic agent; Z88.1 Allergy status to other antibiotic agents; E88.09 Other disorders of plasma-protein metabolism, not elsewhere classified

== ENCOUNTER 2021-10-03 12:40 | Observation (INO) | payer OTHER, MEDICAID ==
[~2021-10-03] VITALS: Ht 182.9 cm; Wt 132.9 kg
[~2021-10-03 12:40] MED LIST changes: +ACID CONTROLLER20 MG PO; +BENEFIBER236 GM PO; +BUPROPION HCL150 M1 PO; +DOXYCYCLINE 10100 MG PO; +MILK OF MA400 MG/5 M PO; +THEREMS-M1 EACH PO; +TRAZODONE HCL50 MG PO; +WIXELA 250-501 EACH INH; +ZOLOFT25 MG PO
[2021-10-03 12:49] VITALS: BP 104/32
[2021-10-03] MEDS ORDERED: DEPAKOTE 250MG250 M1 PO (13:02)
[2021-10-03] MEDS ORDERED: DEPAKOTE500 MG PO (13:03)
[2021-10-03 13:22] LABS: ABSOLUTE EOSINOPHILS 0.1 thou/uL (0.0-0.7); ABSOLUTE LYMPHOCYTES 0.9 thou/uL (0.8-5.3); ABSOLUTE MONOCYTES 0.2 thou/uL (0.0-1.2); ABSOLUTE NEUTROPHILS 3.1 thou/uL (1.6-8.1); BASOPHILS 0.2 %; EOSINOPHILS 1.5 %; HEMATOCRIT 40.6 % (42.0-52.0); HEMOGLOBIN 13.4 gm/dL (14.0-18.0); MCH 30.5 pg (26.0-34.0); MCHC 33.1 g/dL (28.0-37.0); MCV 92.2 fL (80.0-100.0); MONOCYTES 4.6 %; MPV 7.7 fl. (7.2-11.1); NUCLEATED RBCS 0 /100WBC; PLATELET COUNT* 163 thou/uL (150-400); POLYS 72.7 %; RDW-CV 13.7 % (10.5-14.5); WBC 4.3 thou/uL (4.0-11.0)
[2021-10-03 13:36] LABS: CREATININE 0.9 mg/dL (0.6-1.3); POTASSIUM 3.9 mmol/L (3.5-5.1)
[2021-10-03 13:41] LABS: ALBUMIN 3.2 g/dL (3.4-5.0); TOTAL BILIRUBIN 0.4 mg/dL (<0.1-1.0); TOTAL PROTEIN 7.1 g/dL (6.4-8.2)
[2021-10-03 16:50] VITALS: BP 130/51
[2021-10-03 17:00] VITALS: BP 134/57
--- NOTE | 2021-10-03 18:16 | NUR ---
ALERT AND ORIENTED WITH SOME FORGETFULNESS. UP WITH ASSIST ORDERED. HAD VERY LARGE BOWEL MOVEMENT IN ER. HARD OF HEARING. ASSESSMENT DONE CHARTED. FALL PRECAUTIONS IN PLACE.
[2021-10-03 21:12] LABS: URINE BILIRUBIN NEGATIVE (Negative); URINE BLOOD NEGATIVE (Negative); URINE CLARITY CLEAR; URINE COLOR YELLOW; URINE GLUCOSE-RANDOM NEGATIVE (Negative); URINE KETONES NEGATIVE (Negative); URINE NITRITE-REFLEX NEGATIVE (Negative); URINE PROTEIN NEGATIVE (Negative); URINE SPECIFIC GRAVITY 1.025 (1.005-1.030)
[2021-10-03 21:15] LABS: URINE LEUKOCYTES-REFLEX 2+ (Negative)
[2021-10-03 21:23] LABS: MUCUS None Seen strn/LPF (None Seen); SQUAMOUS >10 Many /LPF (0-3)
[2021-10-03 21:24] LABS: BACTERIA-REFLEX >30 Many /HPF (None Seen); CASTS None Seen /LPF (None Seen); CRYSTALS None Seen /LPF (None Seen); URINE RBC None Seen /HPF (0-2); URINE WBC-REFLEX >25 Many /HPF (0-5); WBC CLUMPS Few (None Seen)
[2021-10-03 23:12] VITALS: BP 156/94
[2021-10-04 04:22] LABS: HEMATOCRIT 35.4 % (42.0-52.0); HEMOGLOBIN 11.5 gm/dL (14.0-18.0); MCH 30.1 pg (26.0-34.0); MCHC 32.5 g/dL (28.0-37.0); MCV 92.6 fL (80.0-100.0); MPV 7.7 fl. (7.2-11.1); RBC 3.83 mil/uL (4.50-6.00); RDW-CV 13.8 % (10.5-14.5); WBC 3.8 thou/uL (4.0-11.0)
[2021-10-04 04:32] LABS: ALBUMIN 2.6 g/dL (3.4-5.0); CALCIUM 8.2 mg/dL (8.5-10.1); MAGNESIUM 2.1 mg/dL (1.8-2.4); POTASSIUM 4.2 mmol/L (3.5-5.1); TOTAL BILIRUBIN 0.3 mg/dL (<0.1-1.0)
[2021-10-04 08:05] VITALS: BP 120/66
--- NOTE | 2021-10-04 08:49 | EKG ---
[place] [address] ELECTROCARDIOGRAM REPORT Name: OSWALDONAEL ALDANAH Brice CASTORENA Room: [address] ADM IN M.R.#: [id number] Admission: 10/03/21 Attend Phys: Amlaia Corral, Discharge: Date of : 36 Date of Service: 10/03/21 1259 Report #: [id number] THIS REPORT FOR: //name// 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
[2021-10-04 16:02] VITALS: BP 121/56
--- NOTE | 2021-10-04 16:56 | NUR ---
Case Management Assessment Assessment completed with pt. Pt a poor historian . Attmepts made to contact authorized contacts on file. Prior to arrival at [facility], pt living in LTC at [facility]. Pt unable to complete ADLs. CM to continue to follow pt.
--- NOTE | 2021-10-04 16:59 | NUR ---
PT MAX ASSIST X2. UP WITH LIFT. O2 2LNC. PT HAD LARGE BM AND THEN A SMALL BM AFTER BOWEL REGIMEN WAS GIVEN. INCONENENT OF B.B. IVF INFUSING. PRN PAIN MEDICATION GIVEN PER PT REQUEST. GI HERE TO SEE PT TODAY. CALL LIGHT IN REACH. FALL PRECAUTIONS IN PLACE.
[2021-10-04 19:35] VITALS: BP 132/59
[2021-10-04 20:34] LABS: URINE BILIRUBIN NEGATIVE (Negative); URINE BLOOD NEGATIVE (Negative); URINE CLARITY CLOUDY; URINE COLOR YELLOW; URINE GLUCOSE-RANDOM NEGATIVE (Negative); URINE KETONES NEGATIVE (Negative); URINE NITRITE-REFLEX NEGATIVE (Negative); URINE PROTEIN NEGATIVE (Negative)
[2021-10-04 20:45] LABS: URINE LEUKOCYTES-REFLEX 2+ (Negative)
[2021-10-04 20:54] LABS: SQUAMOUS 4-10 Moderate /LPF (0-3); URINE WBC-REFLEX 6-15 Few /HPF (0-5)
[2021-10-04 20:55] LABS: CASTS None Seen /LPF (None Seen); MUCUS 0-3 Light strn/LPF (None Seen); URINE RBC 0-2 Rare /HPF (0-2)
[2021-10-04 20:56] LABS: TRIPLE PHOSPHATE CRYSTALS 0-3 Few /LPF (None Seen)
--- NOTE | 2021-10-05 04:14 | NUR ---
PATIENT HAS REMAINED ALERT AND ORIENTED X 4 WITH SOME FORGETFULNESS. CALLING FOR NEEDS. TURNED Q2H. CPAP HS. VITAL SIGNS STABLE. NO NAUSEA OR VOMITING THIS SHIFT. MEDICATED X 1 FOR ABDOMINAL CRAMPING WITH PLAIN TYLENOL TO GOOD EFFECT. ASSISTED WITH URINAL TO OBTAIN SAMPLE FOR LAB. NO BM'S THIS SHIFT OF THIS WRITING. FALL PRECAUTIONS IN PLACE. CONTINUE TO MONITOR.
[2021-10-05 05:41] LABS: HEMATOCRIT 34.7 % (42.0-52.0); HEMOGLOBIN 11.5 gm/dL (14.0-18.0); MCH 30.6 pg (26.0-34.0); MCHC 33.1 g/dL (28.0-37.0); MCV 92.6 fL (80.0-100.0); MPV 7.9 fl. (7.2-11.1); RBC 3.75 mil/uL (4.50-6.00); RDW-CV 13.6 % (10.5-14.5); WBC 3.1 thou/uL (4.0-11.0)
[2021-10-05 05:48] LABS: CALCIUM 8.4 mg/dL (8.5-10.1); CREATININE 0.7 mg/dL (0.6-1.3); POTASSIUM 4.7 mmol/L (3.5-5.1)
[2021-10-05 07:30] VITALS: BP 116/41
--- NOTE | 2021-10-05 15:13 | NUR ---
PATIENT DISCHARGED BACK [facility] VIA WHEELCHAIR VAN AT THIS TIME. REPORT CALLED TO DEON. SHORTY KWAN'Yosvany. GOOD APPETITE. INCONTINENT OF STOOL AND URINE.
--- NOTE | 2021-10-05 17:34 | NUR ---
CM FOLLOWUP PT MEDICALLY CLEARED TO DISCHARGE BACK TO LTC AT [facility]. CM ATTEMPTED TO CONTACT AUTHORIZED CONTACTS (SHIRLEY AND LOUISA CHACON) BUT WAS NOT ABLE TO REACH THEM OR LEAVE A VOICEMAIL.
== END 2021-10-06 13:24 | disposition home or self-care (01) ==
LOC: M.ERS 12:40 → M.3W 15:06 → M.TBA-ER 15:06 → M.3W 16:58 → M.TBA-ER 16:58 → M.3W 16:58 → M.TBA-ER 10-06 13:24
PROVIDERS: Family Medicine; Internal Medicine; ADMIT Internal Medicine; ATTEND Internal Medicine
DX: K59.00 Constipation, unspecified (principal); Z20.822 Contact with and (suspected) exposure to COVID-19; R10.32 Left lower quadrant pain; R10.31 Right lower quadrant pain; E87.2 Acidosis; N39.0 Urinary tract infection, site not specified; R11.2 Nausea with vomiting, unspecified; R32 Unspecified urinary incontinence; E86.0 Dehydration; M16.0 Bilateral primary osteoarthritis of hip; R53.1 Weakness; I10 Essential (primary) hypertension; E78.5 Hyperlipidemia, unspecified; E11.9 Type 2 diabetes mellitus without complications; F32.9 Major depressive disorder, single episode, unspecified; G47.30 Sleep apnea, unspecified; Z86.718 Personal history of other venous thrombosis and embolism; Z79.82 Long term (current) use of aspirin; Z79.84 Long term (current) use of oral hypoglycemic drugs; Z79.899 Other long term (current) drug therapy